=== PATIENT | female | born 1960 | race Caucasian/White ===

== ENCOUNTER → 2016-12-28 | Outpatient (CLI) | payer BC ==
[2013-12-24 15:07] VITALS: BP 116/69
[~2016-12-28] MED LIST: ARIP5TAB13 PO; LEVO100T PO; TRAZ50TA15 PO; VENL75CA PO
--- NOTE | 2016-12-28 15:13 | KCIC ---
EXAM: Dual energy x-ray absorptiometry (DEXA). HISTORY: Postmenopausal female presents for osteoporosis screening. COMPARISON: None. TECHNIQUE: Dual energy x-ray absorptiometry of the lumbar spine and left hip was performed. Calculation of bone mineral density based on standard deviations above or below the expected young adult normal value (T-score) was completed. FINDINGS: The average bone mineral density in the 1st through 4th lumbar vertebrae is 1.006 g/cmxcm, corresponding with a T-score of -0.4. The average total bone mineral density in the left hip is 0.937 g/cmxcm, corresponding with a T-score of -0.0. IMPRESSION: Normal bone mineral density. Note: Definitions established by the World Health Organization: 1. Normal: T-score is -1.0 or above. 2. Osteopenia: T-score is between -1.0 and -2.5 . 3. Osteoporosis: T-score is -2.5 or below. Electronically signed by: Agnieszka Mcdaniels MD (12/28/2016 3:09 PM) [id number]
--- NOTE | 2016-12-28 15:55 | KCIC ---
EXAM: CT CORONARY CALCIUM SCORING. HISTORY: Coronary risk factors. Calcium scoring is requested. Family history of coronary disease. COMPARISON: None. FINDINGS: Limited noncontrast CT of the chest was performed for coronary calcium scoring. Refer to the worksheets for full detail. Agatston calcium coronary scoring is as follows: LMA: 0. LAD: 0. LCX: 0. RCA: 0. PDA: 0. Total: 0. This places the patient at the 0th percentile in age- and sex-matched subjects. The included portions of the chest reveal the following. Bone windows reveal no suspicious lesions. Images of the upper abdomen reveal mild splenomegaly at 14.5 cm. It retains its normal concave morphology. There are no pathologically enlarged mediastinal lymph nodes. There is no pleural or pericardial effusion. The heart is not enlarged. There is mild atelectasis or scarring in the lingula and right middle lobe. IMPRESSION: 1. Agatston calcium score 0. 2. Mild splenomegaly. *One or more of the following individualized dose reduction techniques were utilized for this examination: 1. Automated exposure control. 2. Adjustment of the mA and/or kV according to patient size. 3. Use of iterative reconstruction technique. Electronically signed by: Sam Dennis MD (12/28/2016 3:51 PM) [facility]
== END | disposition home or self-care (01) ==
LOC: KCIC DEXA 09:29
PROVIDERS: ATTEND Family Medicine
DX: Z78.0 Asymptomatic menopausal state (principal); M85.88 Other specified disorders of bone density and structure, other site; Z82.49 Family history of ischemic heart disease and other diseases of the circulatory system; R16.1 Splenomegaly, not elsewhere classified
CPT/HCPCS: 75571; 77080

== ENCOUNTER → 2017-02-14 | Outpatient (CLI) | payer BC ==
[2013-12-24 15:07] VITALS: BP 116/69
[~2017-02-14] MED LIST changes: +DARI7.5T3 PO; +DEXT15CA18 PO; +IOHEXOL 240 MG/ML 50ML VIAL. PO ONE; +IOHEXOL 300 MG/ML 100ML VIAL. IV ONE; +SERT50TA PO
--- NOTE | 2017-02-14 14:00 | KCIC ---
PQRS Compliance Statement: One or more of the following individualized dose reduction techniques were utilized for this examination: 1. Automated exposure control 2. Adjustment of the mA and/or kV according to patient size 3. Use of iterative reconstruction technique CT ABD PELV W/ORAL IV CONTRAST Clinical Indication: Epigastric pain, vomiting x1 day. Comparison: None. Technique: Helical CT imaging of the abdomen and pelvis is performed after 100 cc Omnipaque 300 IV contrast. Oral contrast also given. Findings: Minimal atelectasis or scarring in the posterior left lower lobe, inferior lingula, and right middle lobe. Cardiac size normal. 9 mm hypodensity anterior dome of the liver, incompletely characterized. Liver otherwise homogeneous. Gallbladder is distended, otherwise normal. Spleen, pancreas, adrenal glands, abdominal aorta, and kidneys are normal. Stomach unremarkable. Small fat-containing umbilical hernia. No dilated small bowel. No secondary signs of appendicitis. No colon wall thickening. No abdominal adenopathy or free fluid. Uterus unremarkable. Urinary bladder normal. No pelvic free fluid. No acute bone abnormality. Sacralized left L5 vertebral body. IMPRESSION: No acute abdominal or pelvic abnormality. Electronically signed by: [place] MD (02/14/2017 1:57 PM) [id number]
== END | disposition home or self-care (01) ==
LOC: KCIC CT 12:44
PROVIDERS: ATTEND Nurse Practitioner Family
DX: R10.13 Epigastric pain (principal); R11.10 Vomiting, unspecified
CPT/HCPCS: 74177; Q9966; Q9967

== ENCOUNTER 2017-02-16 23:51 | Inpatient (IN) | payer BC ==
[~2017-02-16] VITALS: Ht 162.6 cm; Wt 96.2 kg
[~2017-02-16 23:51] MED LIST changes: -IOHEXOL 240 MG/ML 50ML VIAL. PO ONE; -IOHEXOL 300 MG/ML 100ML VIAL. IV ONE
[2017-02-17] VITALS (11 sets, daily range): BP systolic 108–168; BP diastolic 59–92
--- NOTE | 2017-02-17 00:08 | PHYS DOC ---
Past Medical History Past Medical History: Depression, Hypertension, Hypothyroid Additional Past Medical Histor: Breast CA- treated Past Medical History Thyroid disease Additional Past Surgical Histo: Right breast lumpectomy Additional Information: Non smoker Alcohol Use: None Drug Use: None Adult General Chief Complaint Chief Complaint: ABDOMINAL PAIN HPI HPI Patient is a 56 year old female who presents with abdominal pain. Started on Monday; epigastric and then radiates down into her entire abdomen stopping at her umbilicus. More pronounced epigastric and RUQ area. The patient is been constant, she's had vomiting. No diarrhea actually no stool at all. Some chills no documented fever. No recent travel. No urinary complaints. She was seen by her physician on Monday and had a CAT scan. CT report from February 14 was unremarkable except for small fat-containing umbilical hernia. Review of Systems Review of Systems Constitutional: no known fever; reports chills Eyes: Denies change in visual acuity, redness, or eye pain HENT: Denies nasal congestion or sore throat Respiratory: Denies cough or shortness of breath Cardiovascular: No chest pain GI: Reports abdominal pain, nausea, vomiting, No bloody stools or diarrhea : Denies dysuria or hematuria Musculoskeletal: Denies back pain or joint pain Integument: Denies rash or skin lesions Neurologic: Denies headache, focal weakness or sensory changes Endocrine: Denies polyuria or polydipsia Current Medications Current Medications Current Medications Medications (Trade) Dose Ordered Sig/Jaclyn Start Time Stop Time Status Last Admin Dose Admin Morphine Sulfate 2 mg PRN Q15MIN PRN 02/17/17 00:22 02/18/17 00:14 02/17/17 00:26 2 MG Ondansetron HCl (Zofran) 4 mg 1X ONCE 02/17/17 00:15 02/17/17 00:16 DC 02/17/17 00:26 4 MG Sodium Chloride 1,000 ml @ 1,000 mls/hr Q1H 02/17/17 00:15 02/17/17 01:14 02/17/17 00:27 1,000 MLS/HR Allergies Allergies Allergies Coded Allergies Type Severity Reaction Last Updated Verified No Known Drug Allergies 12/16/13 No Physical Exam Physical Exam Constitutional: Well developed, well nourished, no acute distress, non-toxic appearance. HENT: Normocephalic, atraumatic, bilateral external ears normal, oropharynx moist, no oral exudates, nose normal. Eyes: PERRLA, EOMI, conjunctiva normal, no discharge. Neck: Normal range of motion, no tenderness, supple, no stridor. Cardiovascular:Heart rate regular rhythm, no murmur Lungs & Thorax: Bilateral breath sounds clear to auscultation Abdomen: Bowel sounds normal, soft, tenderness diffusely but increased in epigastric and RUQ, no masses, no pulsatile masses. Skin: Warm, dry, no erythema, no rash. Back: No tenderness, no CVA tenderness. Extremities: No tenderness, no cyanosis, no clubbing, ROM intact, no edema. Neurologic: Alert and oriented X 3, normal motor function, normal sensory function, no focal deficits noted. Psychologic: Affect normal, judgement normal, mood normal. Current Patient Data Vital Signs Vital Signs Date Time Temp Pulse Resp B/P (MAP) Pulse Ox O2 Delivery O2 Flow Rate FiO2 02/17/17 00:30 89 16 168/85 (112) 99 02/17/17 00:14 99.0 Room Air 99.0 Lab Values Laboratory Tests Test 02/17/17 00:19 White Blood Count 14.5 x10^3/uL (4.0-11.0) H Red Blood Count 4.97 x10^6/uL (3.50-5.40) Hemoglobin 14.1 g/dL (12.0-15.5) Hematocrit 41.9 % (36.0-47.0) Mean Corpuscular Volume 84 fL (79-100) Mean Corpuscular Hemoglobin 28 pg (25-35) Mean Corpuscular Hemoglobin Concent 34 g/dL (31-37) Red Cell Distribution Width 14.5 % (11.5-14.5) Platelet Count 221 x10^3/uL (140-400) Neutrophils (%) (Auto) 85 % (31-73) H Lymphocytes (%) (Auto) 5 % (24-48) L Monocytes (%) (Auto) 9 % (0-9) Eosinophils (%) (Auto) 1 % (0-3) Basophils (%) (Auto) 1 % (0-3) Neutrophils # (Auto) 12.3 x10^3uL (1.8-7.7) H Lymphocytes # (Auto) 0.8 x10^3/uL (1.0-4.8) L Monocytes # (Auto) 1.2 x10^3/uL (0.0-1.1) H Eosinophils # (Auto) 0.1 x10^3/uL (0.0-0.7) Basophils # (Auto) 0.1 x10^3/uL (0.0-0.2) Platelet Estimate Pending Sodium Level 134 mmol/L (136-145) L Potassium Level 3.5 mmol/L (3.5-5.1) Chloride Level 98 mmol/L (98-107) Carbon Dioxide Level 28 mmol/L (21-32) Anion Gap 8 (6-14) Blood Urea Nitrogen 13 mg/dL (7-20) Creatinine 1.0 mg/dL (0.6-1.0) Estimated GFR (Cockcroft-Gault) 56.9 BUN/Creatinine Ratio 13 (6-20) Glucose Level 150 mg/dL (70-99) H Calcium Level 8.8 mg/dL (8.5-10.1) Total Bilirubin 0.8 mg/dL (0.2-1.0) Aspartate Amino Transferase (AST) 18 U/L (15-37) Alanine Aminotransferase (ALT) 37 U/L (14-59) Alkaline Phosphatase 121 U/L (46-116) H Creatine Kinase 52 U/L (26-192) Troponin I Quantitative < 0.017 ng/mL (0.000-0.055) Total Protein 6.7 g/dL (6.4-8.2) Albumin 3.6 g/dL (3.4-5.0) Albumin/Globulin Ratio 1.2 (1.0-1.7) Lipase 86 U/L (73-393) Laboratory Tests 02/17/17 00:19 Laboratory Tests 02/17/17 00:19 EKG EKG EKG interpreted by myself at 0010 a.m. Normal sinus rhythm, rate of 90, leftward axis, nonspecific ST changes, no ST elevation Course & Med Decision Making Course & Med Decision Making Evaluated patient upon arrival. IV NS, IV morphine and IV Zofran. My differential for abdominal pain includes but is not limited to appendicitis; cholelithiasis or cholecystitis; renal stones; ureterolithiasis; pancreatitis; urinary tract infection; bowel obstruction; irritable bowel. She has had a recent normal CT scan. Checking lab. May still be biliary colic. 0055 am: Reviewed lap. She does have a leukocytosis which I presume is new since her laboratory data she had an outpatient on Monday was "normal". Repeat exam shows persistent pain in the right upper quadrant. She does not have however an acute surgical abdomen at this time. My presumptive diagnosis is acute cholecystitis. I did not feel that a repeat CAT scan was warranted so soon one just performed. Gallbladder ultrasound was ordered for the morning since now she'll be nothing by mouth all night. Dr Balderas accepted patient. Consult for general surgery, Dr Sanchez placed for the am. I have spoken with the patient and/or caregivers. I have explained the patient' s condition, diagnosis and treatment plan based on the information available to me at this time. I have answered the patient's and/or caregiver's questions and addressed any concerns. The patient and/or caregivers have as good an understanding of the patient's diagnosis, condition and treatment plan as can be expected at this point. The patient has been stabilized within the capability of the emergency department. The patient will be transported for further care and management or will be moved to an observation or inpatient service. I have communicated with the staff or medical practitioner taking over this patient's care. Dragon Disclaimer Dragon Disclaimer This electronic medical record was generated, in whole or in part, using a voice recognition dictation system. Departure Departure Impression: Primary Impression: Abdominal pain Additional Impressions: Nausea & vomiting Leukocytosis Disposition: ADMITTED INPATIENT Admitting Physician: Celeste Balderas Condition: STABLE Referrals: RONA REID MD (PCP) Problem Qualifiers Primary Impression: Abdominal pain Abdominal location: right upper quadrant Qualified Codes: R10.11 - Right upper quadrant pain ROSA BRITT MD Feb 17, 2017 00:08
[2017-02-17] MEDS ORDERED: ONDANSETRON PF 4 MG/2 ML VIAL. IV ONE (00:15)
[2017-02-17] MEDS ORDERED: MORPHINE SULFATE 2 MG/ML DISP.SYRIN. IV/SQ PRN (00:15)
[2017-02-17] MEDS ORDERED: IV NORMAL SALINE 1000ML BAG 1,000 ML IV SCH (00:15)
[2017-02-17 00:23] LABS: BASO # 0.1 x10^3/uL (0.0-0.2); BASO % 1 % (0-3); EOS % 1 % (0-3); HEMATOCRIT 41.9 % (36.0-47.0); HEMOGLOBIN 14.1 g/dL (12.0-15.5); LYMPH # 0.8 x10^3/uL (1.0-4.8); LYMPH % 5 % (24-48); MEAN CORPUSCULAR HEMOGLOBIN 28 pg (25-35); MEAN CORPUSCULAR HGB CONC 34 g/dL (31-37); MEAN CORPUSCULAR VOLUME 84 fL (79-100); MONO % 9 % (0-9); NEUT % 85 % (31-73); PLATELET COUNT 221 x10^3/uL (140-400); RED BLOOD COUNT 4.97 x10^6/uL (3.50-5.40); RED CELL DISTRIBUTION WIDTH 14.5 % (11.5-14.5); WHITE BLOOD COUNT 14.5 x10^3/uL (4.0-11.0)
[2017-02-17] MEDS: MORPHINE SULFATE 4 MG/ML DISP.SYRIN. IV/SQ PRN ×4 (00:26→14:21)
[2017-02-17 00:35] LABS: CALCIUM 8.8 mg/dL (8.5-10.1); GFR 56.9; POTASSIUM 3.5 mmol/L (3.5-5.1)
[2017-02-17 00:41] LABS: ALBUMIN 3.6 g/dL (3.4-5.0); ALBUMIN/GLOBULIN RATIO 1.2 (1.0-1.7); TOTAL BILIRUBIN 0.8 mg/dL (0.2-1.0); TOTAL PROTEIN 6.7 g/dL (6.4-8.2)
[2017-02-17] MEDS ORDERED: ONDANSETRON PF 4 MG/2 ML VIAL. IV PRN ×2 (01:00→12:15)
[2017-02-17 01:15] LABS: PLT ESTIMATE ADEQUATE (ADEQUATE)
[2017-02-17] MEDS ORDERED: CEFEPIME HCL 1 GM in IV NORMAL SALINE 50ML 50 ML IV ONE (01:30)
[2017-02-17] MEDS ORDERED: POTASSIUM CL 20MEQ D5-0.45NACL 1,000 ML IV ONE (02:15)
[2017-02-17] MEDS ORDERED: DEXT15CA18 PO (03:04)
[2017-02-17] MEDS: fentaNYL PF VIAL 100 MCG/2 ML VIAL IV PRN ×4 (03:14→13:44)
[2017-02-17] MEDS ORDERED: PROM25TA10 PO (03:52)
[2017-02-17] MEDS: CEFEPIME HCL 1 GM in IV NORMAL SALINE 50ML 50 ML IV SCH ×3 (05:34→21:05)
[2017-02-17] MEDS: MORPHINE SULFATE 4 MG/ML DISP.SYRIN. IV PRN ×3 (06:00→10:52)
--- NOTE | 2017-02-17 06:07 | EKG ---
[facility] [address] [place] [address] Test Date: 2017-02-17 Test Time: 00:10:55 Pat Name: GERI VIZCARRA Department: Room: [facility] Gender: F Development Technologist: : 1960 Requested By: ROSA BRITT Order Number: [id number] Reading MD: Sukumar Perez Measurements Intervals [place] Rate: 90 P: 42 SD: 128 QRS: -15 QRSD: 88 T: 26 QT: 350 QTc: 432 Interpretive Statements SINUS RHYTHM Electronically Signed On 02-21-2017 7:17:02 CDT by Sukumar Perez
--- NOTE | 2017-02-17 09:12 | RAD ---
Abdominal ultrasound, 02/17/2017: History: Abdominal pain and chills The gallbladder is at the upper limits of normal in size. There is an echogenic structure in the gallbladder neck with posterior acoustic shadowing compatible with a gallstone. The gallbladder wall is mildly thickened. The patient was reportedly tender to transducer pressure over the gallbladder. The common hepatic duct is of normal caliber. There is no evidence of a hepatic mass. The pancreas was obscured by overlying bowel. The spleen is at the upper limits of normal in size measuring 14 cm in length. Much of the abdominal aorta and inferior vena cava were obscured by overlying bowel. No free fluid is evident in the abdomen. IMPRESSION: 1. Cholelithiasis with mild gallbladder wall thickening and a positive sonographic Camara's sign. The wall thickening raises the possibility of acute cholecystitis, although gallbladder wall thickening can be due to a variety of other causes including include liver disease, renal disease or hypoproteinemia. 2. Borderline splenomegaly.
[2017-02-17] MEDS ORDERED: SURGICEL HEMOSTAT 4X8 EACH. ONE (10:31)
[2017-02-17] MEDS ORDERED: BUPIVAC MPF-EPI 0.5%-1:200000 30 ML VIAL. ONE (10:32)
[2017-02-17] MEDS ORDERED: IOHEXOL 300 MG/ML 50 ML VIAL. ONE (10:32)
[2017-02-17] MEDS ORDERED: fentaNYL PF VIAL 100 MCG/2 ML VIAL ONE ×2 (10:49→13:28)
[2017-02-17] MEDS ORDERED: LIDOCAINE 2% PF Vial for OR 5 ML VIAL. ONE (10:49)
[2017-02-17] MEDS ORDERED: PROPOFOL 20 ML IV ONE (10:49)
[2017-02-17] MEDS ORDERED: ROCURONIUM 100 MG/10 ML VIAL. ONE (10:49)
[2017-02-17] MEDS ORDERED: SUCCINYLCHOLINE 200 MG/10 ML VIAL. ONE (10:50)
[2017-02-17] MEDS ORDERED: BUPIVACAINE-EPI 0.25%-1:200000 MPF 30 ML VIAL. ONE (10:55)
--- NOTE | 2017-02-17 11:08 | ACF ---
Admit Criteria Forms Admit Criteria Forms Admit Criteria Forms ABDOMINAL PAIN Clinical Indications for Admission to Inpatient Care ( [place]/check or initial the applicable condition/criteria): Admission is indicated for ANY ONE of the following (1)(2)(3)(4)(5)(6): [X]I. Surgery needed that cannot be performed on ambulatory basis [ ]II. Peritoneal signs present (eg, rebound tenderness, rigidity) [ ]III. Evaluation requires patient to not eat or drink for extended period ( eg, more than 24 hours). [ ]IV. Inpatient admission required[B] rather than observation care (see Abdominal Pain: Observation Care guideline as appropriate) because of ANY ONE of the following(7)(8)(9): [ ] a) Hemodynamic instability [ ]b) Severe pain requiring acute inpatient management [ ]c) Identification of etiology or finding that requires inpatient care (eg, aortic dissection, free air,bowel ischemia)(10) [ ]d) Absent bowel sounds with complete ileus (11) [ ]e) Signs of intestinal obstruction[C] [ ]f) Suspected toxic megacolon [ ]g) Severe electrolyte abnormalities requiring inpatient care [ ]h) High fever or infection requiring inpatient admission as indicated by ANY ONE of the following (12)(13): [ ]i) Appropriate outpatient or observation care antimicrobial treatment unavailable, not effective, or not feasible [ ]ii) Documented bacteremia [ ]iii) Temperature greater than 104.9 degrees F (40.5 degrees C) (oral) [ ]iv) Temperature greater than 103.1 degrees F (39.5 degrees C) ( oral) or less than 96.8 degrees F (36 degrees C) (rectal) that does not respond to all emergency treatment measures [ ]i) IV fluid required rather than oral rehydration to replace significant ongoing (eg, for greater than 24 hours) losses (greater than 3 L/m2 per day)(14)(15) [ ]j) Percutaneous or open drainage (eg, abscess, biliary tract) procedures [ ]k) Parenteral nutrition regimen that must be implemented on inpatient basis [ ]l) Other condition, treatment, or monitoring requiring inpatient admission Extended stay beyond goal length of stay may be needed for (1)(3)(4)(10)(16): [ ]a) Surgery (e.g., colectomy, revascularization procedure) [ ]b) Persistent abdominal pain with suspected intra-abdominal process [ ]c) Diagnosed condition requiring continued stay (e.g., pancreatitis, complicated diverticulitis) The original [facility] content created by [facility] has been revised. The portions of the content which have been revised are identified through the use of italic text, and [facility] has neither reviewed nor approved the modified material.All other unmodified content is copyright [facility]. Please see references footnoted in the original [facility] edition 2014 ELMER HER Feb 17, 2017 11:08
--- NOTE | 2017-02-17 11:31 | PDOC2 ---
CONSULT Date of Consult Date of Consult DATE: 02/17/17 TIME: 11:28 Reason for Consult Reason for Consult: RUQ abominal pain Referring Physician Referring Physician: Andrey Identification/Chief Complaint Chief Complaint Abdominal pain Problems: Source Source: Patient History of Present Illness Reason for Visit: 56 yo female with 4 day history of upper abdominal pain with nausea, worse after eating. U/S shows mildly thickened GB with stones and a positive Camara's sign. Past Medical History Cardiovascular: No pertinent hx Pulmonary: No pertinent hx GI: No pertinent hx Heme/Onc: No pertinent hx Hepatobiliary: No pertinent hx Psych: No pertinent hx Infectious disease: No pertinent hx Renal/: No pertinent hx Endocrine: No pertinent hx Dermatology: No pertinent hx Past Surgical History Past Surgical History: No pertinent history Family History Family History: No Significant Social History No ALCOHOL: none Drugs: None Lives: with Family Current Problem List Problem List Problems Medical Problems: (1) Abdominal pain Status: Acute (2) Leukocytosis Status: Acute (3) Nausea & vomiting Status: Acute Current Medications Current Medications Current Medications Morphine Sulfate 2 mg PRN Q15MIN PRN IV/SQ PAIN GREATER THAN 3/10; Start at 00:15; Stop 02/17/17 at 00:22; Status DC Sodium Chloride 1,000 ml @ 1,000 mls/hr Q1H IV Last administered on 02/17/17 00:27; Start 02/17/17 at 00:15; Stop 02/17/17 at 01:14; Status DC Ondansetron HCl (Zofran) 4 mg 1X ONCE IV Last administered on 02/17/17 00:26 ; Start 02/17/17 at 00:15; Stop 02/17/17 at 00:16; Status DC Morphine Sulfate 2 mg PRN Q15MIN PRN IV/SQ PAIN GREATER THAN 3/10 Last administered on 02/17/17 01:44; Start 02/17/17 at 00:22; Stop 02/18/17 at 00:14 Ondansetron HCl (Zofran) 4 mg PRN Q8HRS PRN IV NAUSEA/VOMITING; Start 02/17/17 at 01:00; Stop 02/18/17 at 00:59 Morphine Sulfate 2 mg PRN Q2HR PRN IV PAIN Last administered on 02/17/17 10:52 ; Start 02/17/17 at 01:00; Stop 02/18/17 at 00:59 Fentanyl Citrate (Fentanyl 2ml Vial) 50 mcg PRN Q2HR PRN IV PAIN Last administered on 02/17/17 03:14; Start 02/17/17 at 01:00; Stop 02/18/17 at 00:59 Cefepime HCl 1 gm/ Sodium Chloride 50 ml @ 100 mls/hr Q8HRS IV Last administered on 02/17/17 05:34; Start 02/17/17 at 06:00 Cefepime HCl 1 gm/ Sodium Chloride 50 ml @ 100 mls/hr ONCE ONCE IV Last administered on 02/17/17 01:44; Start 02/17/17 at 01:30; Stop 02/17/17 at 02:00 ; Status DC Potassium Chloride/Dextrose/ Sod Cl 1,000 ml @ 125 mls/hr 1X ONCE IV Last administered on 02/17/17 03:25; Start 02/17/17 at 02:15; Stop 02/17/17 at 10:14 ; Status DC Cellulose 1 each STK-MED ONCE .ROUTE ; Start 02/17/17 at 10:31; Stop 02/17/17 at 10:32; Status DC Bupivacaine HCl/ Epinephrine Bitart (Sensorcain-Mpf Epi 0.5%-1:[id number]) 30 ml STK -MED ONCE .ROUTE ; Start 02/17/17 at 10:32; Stop 02/17/17 at 10:33; Status DC Iohexol (Omnipaque 300 Mg/ml) 50 ml STK-MED ONCE .ROUTE ; Start 02/17/17 at 10: 32; Stop 02/17/17 at 10:33; Status DC Propofol 20 ml @ As Directed STK-MED ONCE IV ; Start 02/17/17 at 10:49; Stop at 10:50; Status DC Lidocaine HCl (Lidocaine Pf 2% Vial) 5 ml STK-MED ONCE .ROUTE ; Start 02/17/17 at 10:49; Stop 02/17/17 at 10:50; Status DC Fentanyl Citrate (Fentanyl 2ml Vial) 100 mcg STK-MED ONCE .ROUTE ; Start at 10:49; Stop 02/17/17 at 10:50; Status DC Rocuronium [place] (Zemuron) 100 mg STK-MED ONCE .ROUTE ; Start 02/17/17 at 10: 49; Stop 02/17/17 at 10:50; Status DC Succinylcholine Chloride (Anectine) 200 mg STK-MED ONCE .ROUTE ; Start 02/17/17 at 10:50; Stop 02/17/17 at 10:51; Status DC Bupivacaine HCl/ Epinephrine Bitart (Sensorcaine-Epi 0.25%-1:953949 Mpf) 30 ml STK-MED ONCE .ROUTE ; Start 02/17/17 at 10:55; Stop 02/17/17 at 10:56; Status DC Active Scripts Active Reported Promethazine Hcl 25 Mg Tablet 25 Mg PO Q6H Adderall Xr 15 Mg Capsule (Dextroamphetamine/Amphetamine) 15 Mg Cap.er.24h 15 Mg PO BID Zoloft (Sertraline Hcl) 50 Mg Tablet 1 Tab PO DAILY Effexor Xr (Venlafaxine Hcl) 75 Mg Cap.er.24h 150 Mg PO DAILY Synthroid (Levothyroxine Sodium) 100 Mcg Tablet 0 PO DAILYAC Trazodone Hcl 50 Mg Tablet 200 Mg PO HS Allergies Allergies: Coded Allergies: No Known Drug Allergies (Unverified , 12/16/13) ROS Gastrointestinal: Yes Nausea, Yes Vomiting, Yes Abdominal Pain Physical Exam General: Alert, Oriented X3, Cooperative, mild distress HEENT: Atraumatic, PERRLA, EOMI Lungs: Clear to auscultation, Normal air movement Heart: Regular rate, No murmurs Abdomen: Normal bowel sounds, Soft, Other (TTP RUQ) Extremities: No edema Skin: No significant lesion Neuro: Normal speech Psych/Mental Status: Mental status NL Vitals VITALS Vital Signs Date Time Temp Pulse Resp B/P (MAP) Pulse Ox O2 Delivery O2 Flow Rate FiO2 02/17/17 10:52 20 94 Room Air 02/17/17 07:00 99.4 91 168/92 (117) 99.4 Labs Labs Laboratory Tests Test 02/17/17 00:19 White Blood Count 14.5 x10^3/uL (4.0-11.0) Red Blood Count 4.97 x10^6/uL (3.50-5.40) Hemoglobin 14.1 g/dL (12.0-15.5) Hematocrit 41.9 % (36.0-47.0) Mean Corpuscular Volume 84 fL (79-100) Mean Corpuscular Hemoglobin 28 pg (25-35) Mean Corpuscular Hemoglobin Concent 34 g/dL (31-37) Red Cell Distribution Width 14.5 % (11.5-14.5) Platelet Count 221 x10^3/uL (140-400) Neutrophils (%) (Auto) 85 % (31-73) Lymphocytes (%) (Auto) 5 % (24-48) Monocytes (%) (Auto) 9 % (0-9) Eosinophils (%) (Auto) 1 % (0-3) Basophils (%) (Auto) 1 % (0-3) Neutrophils # (Auto) 12.3 x10^3uL (1.8-7.7) Lymphocytes # (Auto) 0.8 x10^3/uL (1.0-4.8) Monocytes # (Auto) 1.2 x10^3/uL (0.0-1.1) Eosinophils # (Auto) 0.1 x10^3/uL (0.0-0.7) Basophils # (Auto) 0.1 x10^3/uL (0.0-0.2) Segmented Neutrophils % 84 % (35-66) Band Neutrophils % 1 % (0-9) Lymphocytes % 6 % (24-48) Monocytes % 9 % (0-10) Platelet Estimate Adequate (ADEQUATE) Sodium Level 134 mmol/L (136-145) Potassium Level 3.5 mmol/L (3.5-5.1) Chloride Level 98 mmol/L (98-107) Carbon Dioxide Level 28 mmol/L (21-32) Anion Gap 8 (6-14) Blood Urea Nitrogen 13 mg/dL (7-20) Creatinine 1.0 mg/dL (0.6-1.0) Estimated GFR (Cockcroft-Gault) 56.9 BUN/Creatinine Ratio 13 (6-20) Glucose Level 150 mg/dL (70-99) Calcium Level 8.8 mg/dL (8.5-10.1) Total Bilirubin 0.8 mg/dL (0.2-1.0) Aspartate Amino Transf (AST/SGOT) 18 U/L (15-37) Alanine Aminotransferase (ALT/SGPT) 37 U/L (14-59) Alkaline Phosphatase 121 U/L (46-116) Creatine Kinase 52 U/L (26-192) Troponin I Quantitative < 0.017 ng/mL (0.000-0.055) Total Protein 6.7 g/dL (6.4-8.2) Albumin 3.6 g/dL (3.4-5.0) Albumin/Globulin Ratio 1.2 (1.0-1.7) Lipase 86 U/L (73-393) Laboratory Tests Test 02/17/17 00:19 White Blood Count 14.5 x10^3/uL (4.0-11.0) Red Blood Count 4.97 x10^6/uL (3.50-5.40) Hemoglobin 14.1 g/dL (12.0-15.5) Hematocrit 41.9 % (36.0-47.0) Mean Corpuscular Volume 84 fL (79-100) Mean Corpuscular Hemoglobin 28 pg (25-35) Mean Corpuscular Hemoglobin Concent 34 g/dL (31-37) Red Cell Distribution Width 14.5 % (11.5-14.5) Platelet Count 221 x10^3/uL (140-400) Neutrophils (%) (Auto) 85 % (31-73) Lymphocytes (%) (Auto) 5 % (24-48) Monocytes (%) (Auto) 9 % (0-9) Eosinophils (%) (Auto) 1 % (0-3) Basophils (%) (Auto) 1 % (0-3) Neutrophils # (Auto) 12.3 x10^3uL (1.8-7.7) Lymphocytes # (Auto) 0.8 x10^3/uL (1.0-4.8) Monocytes # (Auto) 1.2 x10^3/uL (0.0-1.1) Eosinophils # (Auto) 0.1 x10^3/uL (0.0-0.7) Basophils # (Auto) 0.1 x10^3/uL (0.0-0.2) Segmented Neutrophils % 84 % (35-66) Band Neutrophils % 1 % (0-9) Lymphocytes % 6 % (24-48) Monocytes % 9 % (0-10) Platelet Estimate Adequate (ADEQUATE) Sodium Level 134 mmol/L (136-145) Potassium Level 3.5 mmol/L (3.5-5.1) Chloride Level 98 mmol/L (98-107) Carbon Dioxide Level 28 mmol/L (21-32) Anion Gap 8 (6-14) Blood Urea Nitrogen 13 mg/dL (7-20) Creatinine 1.0 mg/dL (0.6-1.0) Estimated GFR (Cockcroft-Gault) 56.9 BUN/Creatinine Ratio 13 (6-20) Glucose Level 150 mg/dL (70-99) Calcium Level 8.8 mg/dL (8.5-10.1) Total Bilirubin 0.8 mg/dL (0.2-1.0) Aspartate Amino Transf (AST/SGOT) 18 U/L (15-37) Alanine Aminotransferase (ALT/SGPT) 37 U/L (14-59) Alkaline Phosphatase 121 U/L (46-116) Creatine Kinase 52 U/L (26-192) Troponin I Quantitative < 0.017 ng/mL (0.000-0.055) Total Protein 6.7 g/dL (6.4-8.2) Albumin 3.6 g/dL (3.4-5.0) Albumin/Globulin Ratio 1.2 (1.0-1.7) Lipase 86 U/L (73-393) Images Images in HPI Assessment/Plan Assessment/Plan Cholecystitis with cholelithiasis Plan L/S Cholecystectomy JOY WHARTON MD Feb 17, 2017 11:31
[2017-02-17] MEDS ORDERED: ONDANSETRON PF 4 MG/2 ML VIAL. ONE (11:55)
[2017-02-17] MEDS ORDERED: DEXAMETHASONE SOD PHOS 20 MG/5 ML VIAL. ONE (11:55)
[2017-02-17] MEDS ORDERED: DESFLURANE 31 TO 60 MINUTES IH ONE (11:55)
[2017-02-17] MEDS ORDERED: NEOSTIGMINE 10 MG/10 ML VIAL. ONE (12:01)
[2017-02-17] MEDS ORDERED: GLYCOPYRROLATE 1 MG/5 ML VIAL. ONE (12:04)
[2017-02-17] MEDS ORDERED: IV RINGERS,LACTATED 1000ML 1,000 ML IV SCH (12:08)
[2017-02-17] MEDS ORDERED: MORPHINE SULFATE 2 MG/ML DISP.SYRIN. IV PRN (12:15)
[2017-02-17] MEDS ORDERED: fentaNYL PF VIAL 100 MCG/2 ML VIAL IV PRN (12:15)
[2017-02-17] MEDS ORDERED: HYDROmorphone 2 MG/ML VIAL IV PRN (12:15)
[2017-02-17] MEDS ORDERED: PROCHLORPERAZINE 10 MG/2 ML VIAL. IV PRN (12:15)
[2017-02-17] MEDS ORDERED: LIDOCAINE 1% 1 ML SYRINGE. ID PRN (12:15)
[2017-02-17] MEDS ORDERED: LABETALOL 20 MG/4 ML DISP.SYRIN. ONE (12:51)
--- NOTE | 2017-02-17 13:13 | PDOC ---
BRIEF OPERATIVE NOTE Date: Feb 17, 2017 Pre-Op Diagnosis Cholecystitis Post-Op Diagnosis Same Procedure Performed L/S Cholecystectomy Surgeon Daniel Anesthesia Type: General Blood Loss 50ml Specimens Obtained Gallbladder Findings As above Complications NOne JOY WHARTON MD Feb 17, 2017 13:13
[2017-02-17] MEDS ORDERED: oxyCODONE/APAP 5/325 1 TAB TABLET PO PRN ×2 (13:15)
[2017-02-17] MEDS ORDERED: KETOROLAC 15 MG/ML VIAL. ONE (13:43)
--- NOTE | 2017-02-17 14:08 | OP ---
DATE OF SURGERY: 02/17/2017 PREOPERATIVE DIAGNOSIS: Acute cholecystitis. POSTOPERATIVE DIAGNOSIS: Acute cholecystitis. PROCEDURE: Laparoscopic cholecystectomy. SURGEON: Baljeet Sanchez M.D. INDICATIONS: The patient is a 56-year-old female who was admitted to the hospital with right upper quadrant abdominal pain, ultrasound showing thickened gallbladder wall and a positive Camara sign. Procedure of laparoscopic cholecystectomy was explained to the patient in detail. Risks, benefits were also discussed including bleeding, infection. Alternatives of this procedure were also discussed with the patient who seemed to understand and gave verbal and written consent to have the procedure performed. DESCRIPTION OF PROCEDURE: The patient was taken to the operating room and placed in the supine position, general anesthesia was initiated. Once the patient was asleep and intubated, her abdomen was prepped and draped in usual sterile fashion using ChloraPrep. An area just below the umbilicus injected with 0.25% Marcaine with epinephrine. Incision was made with an 11 blade scalpel and a Veress needle was placed within the abdomen and pneumoperitoneum was achieved. Once this was complete, a 5 mm camera was placed within the abdomen. Abdomen was inspected. It was noted there was quite a bit of inflammation in the right upper quadrant. At this point, three 5 mm ports were placed under direct visualization, one in the epigastrium, 2 in the right upper quadrant. The dome of the gallbladder was grasped and retracted cephalad. The infundibulum of the gallbladder was grasped and retracted laterally. The gallbladder was quite tense, so was aspirated of 60 mL of dark purulent bile material. At this point, dissection in the triangle of Calot was down with blunt dissection. There was quite a bit of inflammation and the adherent tissues were quite thickened, eventually the cystic artery was visualized and this was clipped, the cystic duct was then visualized, it was quite large, it was quite dilated, so the 5 mm port in the epigastric area was changed up for 12 mm port allowing for a 10 mm Hem-o-arlin clip to be used to clip in the cystic duct. Two clips were used and cystic duct was transected. The gallbladder was taken off the liver with hook electrocautery, placed in EndoCatch bag and removed from the umbilicus. Right upper quadrant was irrigated and suctioned dry. Hemostasis seemed to be appropriate. A 15-[place] JUJU drain was placed through the lateral 5 mm port. This was placed in the right gutter and the gallbladder fossa. This was sewn into place with a 2-0 silk stitch. The pneumoperitoneum was reduced. All ports were removed. Fascial defect at the umbilicus closed with [id number] 0 Vicryl suture and the skin was reapproximated at all port sites with 4-0 subcuticular Monocryl. Mastisol, Steri-Strips were applied. The patient was awakened, extubated in the operating room, taken to recovery in stable condition. All sponge and instrument counts were listed as correct. Estimated blood loss 50 mL. BALJEET SANCHEZ MD DR: TAN/epifanio JOB#: [id number] / [id number] BRIAN Bowling MD
[2017-02-17] MEDS: KETOROLAC 15 MG/ML VIAL. IV SCH ×2 (17:14→23:44)
--- NOTE | 2017-02-17 18:45 | HP ---
ADMIT DATE: 02/17/2017 CHIEF COMPLAINT: Abdominal pain. HISTORY OF PRESENT ILLNESS: The patient is a pleasant 56-year-old white female who presents with abdominal pain. She rates it at 10/10. She has associated nausea. It has been occurring off and on for a couple of days. Initial CAT scan in the ER did not confirm the etiology, but we suspected she has gallstones. She has now been admitted. We did an ultrasound. It is now confirming gallstones and she also has a thickened gallbladder. We have consulted Dr. Sanchez. The plan is to do a laparoscopic cholecystectomy today. PAST MEDICAL HISTORY: Depression, hypertension, hypothyroidism, breast cancer, right breast lumpectomy. ALLERGIES: None. FAMILY HISTORY: Diabetes. SOCIAL HISTORY: She does not drink, smoke or take drugs. She is . MEDICATIONS: Reviewed. REVIEW OF SYSTEMS: GENERAL: No history of weight change, weakness or fevers. SKIN: No bruising, hair changes or rashes. EYES: No blurred, double or loss of vision. NOSE AND THROAT: No history of nosebleeds, hoarseness or sore throat. HEART: No history of palpitations, chest pain or shortness of breath on exertion. LUNGS: Denies cough, hemoptysis, wheezing or shortness of breath. GASTROINTESTINAL: She complains of abdominal pain and nausea. GENITOURINARY: No history of frequency, urgency, hesitancy or nocturia. NEUROLOGIC: Denies history of numbness, tingling, tremor or weakness. PSYCHIATRIC: No history of panic, anxiety or depression. ENDOCRINE: No history of heat or cold intolerance, polyuria or polydipsia. EXTREMITIES: Denies muscle weakness, joint pain, pain on walking or stiffness. PHYSICAL EXAMINATION: VITAL SIGNS: Temperature afebrile, pulse 67, respirations 18, blood pressure 142/97. GENERAL: She is alert, cooperative. Her is present. He is good support for her. HEART: Normal S1, S2. LUNGS: Clear. ABDOMEN: Soft, distended, decreased bowel sounds, tender in the right upper quadrant. EXTREMITIES: No edema. SKIN: No rashes. PSYCHIATRIC: She is a little anxious. VASCULAR: Good capillary refill. ENDOCRINE: No thyromegaly. LYMPHATICS: No cervical nodes. LABORATORY DATA: White count 14, hemoglobin 14, platelets 221. Electrolytes are normal, other than a sodium of 134 and glucose of 150. Alk phos a little high at 121. ASSESSMENT AND PLAN: Symptomatic gallstones with hyponatremia and hyperglycemia. The patient is being admitted. We will give her IV fluids, p.r.n. antiemetics, p.r.n. narcotics. Consult General Surgery. She is scheduled for laparoscopic cholecystectomy. We will follow her labs closely. We will recheck her labs in the morning. SEGUN ELIAS DO DR: CARLOS/epifanio JOB#: [id number] / [id number]
[2017-02-18 03:21] VITALS: BP 106/59
[2017-02-18] MEDS: KETOROLAC 15 MG/ML VIAL. IV SCH ×2 (05:41→12:00)
[2017-02-18] MEDS: CEFEPIME HCL 1 GM in IV NORMAL SALINE 50ML 50 ML IV SCH (05:41)
[2017-02-18 06:19] LABS: BASO % 0 % (0-3); EOS % 0 % (0-3); HEMATOCRIT 39.3 % (36.0-47.0); HEMOGLOBIN 13.3 g/dL (12.0-15.5); LYMPH # 1.1 x10^3/uL (1.0-4.8); LYMPH % 7 % (24-48); MEAN CORPUSCULAR HEMOGLOBIN 28 pg (25-35); MEAN CORPUSCULAR HGB CONC 34 g/dL (31-37); MEAN CORPUSCULAR VOLUME 84 fL (79-100); MONO % 8 % (0-9); NEUT % 85 % (31-73); PLATELET COUNT 223 x10^3/uL (140-400); WHITE BLOOD COUNT 14.4 x10^3/uL (4.0-11.0)
[2017-02-18 06:37] LABS: CALCIUM 8.8 mg/dL (8.5-10.1); CREATININE 0.9 mg/dL (0.6-1.0); GFR 64.3; POTASSIUM 3.8 mmol/L (3.5-5.1)
[2017-02-18 07:00] VITALS: BP 103/59
[2017-02-18 11:00] VITALS: BP 105/47
--- NOTE | 2017-02-18 11:21 | PDOC ---
SURGICAL PROGRESS NOTE Subjective minimal pain , RUQ no n/v tolerated diet Vital Signs Vital Signs Date Time Temp Pulse Resp B/P (MAP) Pulse Ox O2 Delivery O2 Flow Rate FiO2 02/18/17 08:18 Room Air 02/18/17 07:00 97.6 72 20 103/59 (74) 98 97.6 02/17/17 17:00 2.5 I&O Intake and Output 02/18/17 07:00 Intake Total 1615 ml Output Total 480 ml Balance 1135 ml Intake Oral 615 ml IV Total 1000 ml Output Urine Total 300 ml Drainage Total 130 ml Estimated Blood Loss 50 ml # Voids 4 General: Alert, Oriented X3, Cooperative, No acute distress Abdomen: Soft, Other (lap dressings dry, JUJU serosang, expected incisional TTP) Labs Laboratory Tests Test 02/17/17 00:19 02/17/17 13:22 02/18/17 05:18 White Blood Count 14.5 x10^3/uL (4.0-11.0) 14.4 x10^3/uL (4.0-11.0) Red Blood Count 4.97 x10^6/uL (3.50-5.40) 4.70 x10^6/uL (3.50-5.40) Hemoglobin 14.1 g/dL (12.0-15.5) 13.3 g/dL (12.0-15.5) Hematocrit 41.9 % (36.0-47.0) 39.3 % (36.0-47.0) Mean Corpuscular Volume 84 fL (79-100) 84 fL (79-100) Mean Corpuscular Hemoglobin 28 pg (25-35) 28 pg (25-35) Mean Corpuscular Hemoglobin Concent 34 g/dL (31-37) 34 g/dL (31-37) Red Cell Distribution Width 14.5 % (11.5-14.5) 15.0 % (11.5-14.5) Platelet Count 221 x10^3/uL (140-400) 223 x10^3/uL (140-400) Neutrophils (%) (Auto) 85 % (31-73) 85 % (31-73) Lymphocytes (%) (Auto) 5 % (24-48) 7 % (24-48) Monocytes (%) (Auto) 9 % (0-9) 8 % (0-9) Eosinophils (%) (Auto) 1 % (0-3) 0 % (0-3) Basophils (%) (Auto) 1 % (0-3) 0 % (0-3) Neutrophils # (Auto) 12.3 x10^3uL (1.8-7.7) 12.2 x10^3uL (1.8-7.7) Lymphocytes # (Auto) 0.8 x10^3/uL (1.0-4.8) 1.1 x10^3/uL (1.0-4.8) Monocytes # (Auto) 1.2 x10^3/uL (0.0-1.1) 1.1 x10^3/uL (0.0-1.1) Eosinophils # (Auto) 0.1 x10^3/uL (0.0-0.7) 0.0 x10^3/uL (0.0-0.7) Basophils # (Auto) 0.1 x10^3/uL (0.0-0.2) 0.0 x10^3/uL (0.0-0.2) Segmented Neutrophils % 84 % (35-66) Band Neutrophils % 1 % (0-9) Lymphocytes % 6 % (24-48) Monocytes % 9 % (0-10) Platelet Estimate Adequate (ADEQUATE) Sodium Level 134 mmol/L (136-145) 139 mmol/L (136-145) Potassium Level 3.5 mmol/L (3.5-5.1) 3.8 mmol/L (3.5-5.1) Chloride Level 98 mmol/L (98-107) 103 mmol/L (98-107) Carbon Dioxide Level 28 mmol/L (21-32) 30 mmol/L (21-32) Anion Gap 8 (6-14) 6 (6-14) Blood Urea Nitrogen 13 mg/dL (7-20) 12 mg/dL (7-20) Creatinine 1.0 mg/dL (0.6-1.0) 0.9 mg/dL (0.6-1.0) Estimated GFR (Cockcroft-Gault) 56.9 64.3 BUN/Creatinine Ratio 13 (6-20) Glucose Level 150 mg/dL (70-99) 100 mg/dL (70-99) Calcium Level 8.8 mg/dL (8.5-10.1) 8.8 mg/dL (8.5-10.1) Total Bilirubin 0.8 mg/dL (0.2-1.0) Aspartate Amino Transf (AST/SGOT) 18 U/L (15-37) Alanine Aminotransferase (ALT/SGPT) 37 U/L (14-59) Alkaline Phosphatase 121 U/L (46-116) Creatine Kinase 52 U/L (26-192) Troponin I Quantitative < 0.017 ng/mL (0.000-0.055) Total Protein 6.7 g/dL (6.4-8.2) Albumin 3.6 g/dL (3.4-5.0) Albumin/Globulin Ratio 1.2 (1.0-1.7) Lipase 86 U/L (73-393) Glucose (Fingerstick) 151 mg/dL (70-99) Laboratory Tests Test 02/17/17 13:22 02/18/17 05:18 Glucose (Fingerstick) 151 mg/dL (70-99) White Blood Count 14.4 x10^3/uL (4.0-11.0) Red Blood Count 4.70 x10^6/uL (3.50-5.40) Hemoglobin 13.3 g/dL (12.0-15.5) Hematocrit 39.3 % (36.0-47.0) Mean Corpuscular Volume 84 fL (79-100) Mean Corpuscular Hemoglobin 28 pg (25-35) Mean Corpuscular Hemoglobin Concent 34 g/dL (31-37) Red Cell Distribution Width 15.0 % (11.5-14.5) Platelet Count 223 x10^3/uL (140-400) Neutrophils (%) (Auto) 85 % (31-73) Lymphocytes (%) (Auto) 7 % (24-48) Monocytes (%) (Auto) 8 % (0-9) Eosinophils (%) (Auto) 0 % (0-3) Basophils (%) (Auto) 0 % (0-3) Neutrophils # (Auto) 12.2 x10^3uL (1.8-7.7) Lymphocytes # (Auto) 1.1 x10^3/uL (1.0-4.8) Monocytes # (Auto) 1.1 x10^3/uL (0.0-1.1) Eosinophils # (Auto) 0.0 x10^3/uL (0.0-0.7) Basophils # (Auto) 0.0 x10^3/uL (0.0-0.2) Sodium Level 139 mmol/L (136-145) Potassium Level 3.8 mmol/L (3.5-5.1) Chloride Level 103 mmol/L (98-107) Carbon Dioxide Level 30 mmol/L (21-32) Anion Gap 6 (6-14) Blood Urea Nitrogen 12 mg/dL (7-20) Creatinine 0.9 mg/dL (0.6-1.0) Estimated GFR (Cockcroft-Gault) 64.3 Glucose Level 100 mg/dL (70-99) Calcium Level 8.8 mg/dL (8.5-10.1) Problem List Problems Medical Problems: (1) Abdominal pain Status: Acute (2) Leukocytosis Status: Acute (3) Nausea & vomiting Status: Acute Assessment/Plan s/p sheron PANIAGUA to [facility] home Home with Drain, FU for removal Problems: LEANDRA FLYNN APRN Feb 18, 2017 11:21
--- NOTE | 2017-02-18 13:41 | PDOC ---
PROGRESS NOTES Chief Complaint Chief Complaint CC:Abd pain HTN Hypothyroidism Depression Breast CA in remission History of Present Illness History of Present Illness Pt was admitted for RUQ pain that radiated diffusely throughout the abd to the level of the umbilicus. Underwent cholecystectomy, pt's pain is resolving. 3 trochar sites, dressings CDI. Roshan-Isabel drain in place. Pt has incentive spirometer. Vitals Vitals Vital Signs Date Time Temp Pulse Resp B/P (MAP) Pulse Ox O2 Delivery O2 Flow Rate FiO2 02/18/17 12:18 98 Room Air 2.5 02/18/17 11:00 98.4 77 20 105/47 (66) 98.4 Physical Exam General: Alert, Oriented X3, Cooperative, No acute distress Heart: Regular rate, No murmurs Lungs: Clear, Other Abdomen: Soft, Other (lap dressings dry, JUJU serosang, expected incisional TTP) Extremities: No edema Skin: No rashes, No breakdown, Other (3 trochar sites) Labs LABS Laboratory Tests Test 02/18/17 05:18 White Blood Count 14.4 x10^3/uL (4.0-11.0) Red Blood Count 4.70 x10^6/uL (3.50-5.40) Hemoglobin 13.3 g/dL (12.0-15.5) Hematocrit 39.3 % (36.0-47.0) Mean Corpuscular Volume 84 fL (79-100) Mean Corpuscular Hemoglobin 28 pg (25-35) Mean Corpuscular Hemoglobin Concent 34 g/dL (31-37) Red Cell Distribution Width 15.0 % (11.5-14.5) Platelet Count 223 x10^3/uL (140-400) Neutrophils (%) (Auto) 85 % (31-73) Lymphocytes (%) (Auto) 7 % (24-48) Monocytes (%) (Auto) 8 % (0-9) Eosinophils (%) (Auto) 0 % (0-3) Basophils (%) (Auto) 0 % (0-3) Neutrophils # (Auto) 12.2 x10^3uL (1.8-7.7) Lymphocytes # (Auto) 1.1 x10^3/uL (1.0-4.8) Monocytes # (Auto) 1.1 x10^3/uL (0.0-1.1) Eosinophils # (Auto) 0.0 x10^3/uL (0.0-0.7) Basophils # (Auto) 0.0 x10^3/uL (0.0-0.2) Sodium Level 139 mmol/L (136-145) Potassium Level 3.8 mmol/L (3.5-5.1) Chloride Level 103 mmol/L (98-107) Carbon Dioxide Level 30 mmol/L (21-32) Anion Gap 6 (6-14) Blood Urea Nitrogen 12 mg/dL (7-20) Creatinine 0.9 mg/dL (0.6-1.0) Estimated GFR (Cockcroft-Gault) 64.3 Glucose Level 100 mg/dL (70-99) Calcium Level 8.8 mg/dL (8.5-10.1) Review of Systems Review of Systems Abd pain resolving Pt complains of pain at surgical instrumentation sites Assessment and Plan Assessmemt and Plan Problems Medical Problems: (1) Abdominal pain Status: Acute (2) Leukocytosis Status: Acute (3) Nausea & vomiting Status: Acute CC:Abd pain: likely due to cholelithiasis, underwent cholecystectomy, continue cefepime, continue pain meds Leukocytosis: likely due to cholelithiasis, still elevated likely from recent surgery, continue to monitor N/V: Continue ondansetron HTN: Continue with home meds Hypothyroidism: Continue levothyroxine Depression: Continue home meds Breast CA in remission: Continue to follow Dispo: DC to home today 02/18/17 Problems: Comment Review of Relevant I have reviewed the following items kishan (where applicable) has been applied. Labs Laboratory Tests Test 02/17/17 00:19 02/17/17 13:22 02/18/17 05:18 White Blood Count 14.5 x10^3/uL (4.0-11.0) 14.4 x10^3/uL (4.0-11.0) Red Blood Count 4.97 x10^6/uL (3.50-5.40) 4.70 x10^6/uL (3.50-5.40) Hemoglobin 14.1 g/dL (12.0-15.5) 13.3 g/dL (12.0-15.5) Hematocrit 41.9 % (36.0-47.0) 39.3 % (36.0-47.0) Mean Corpuscular Volume 84 fL (79-100) 84 fL (79-100) Mean Corpuscular Hemoglobin 28 pg (25-35) 28 pg (25-35) Mean Corpuscular Hemoglobin Concent 34 g/dL (31-37) 34 g/dL (31-37) Red Cell Distribution Width 14.5 % (11.5-14.5) 15.0 % (11.5-14.5) Platelet Count 221 x10^3/uL (140-400) 223 x10^3/uL (140-400) Neutrophils (%) (Auto) 85 % (31-73) 85 % (31-73) Lymphocytes (%) (Auto) 5 % (24-48) 7 % (24-48) Monocytes (%) (Auto) 9 % (0-9) 8 % (0-9) Eosinophils (%) (Auto) 1 % (0-3) 0 % (0-3) Basophils (%) (Auto) 1 % (0-3) 0 % (0-3) Neutrophils # (Auto) 12.3 x10^3uL (1.8-7.7) 12.2 x10^3uL (1.8-7.7) Lymphocytes # (Auto) 0.8 x10^3/uL (1.0-4.8) 1.1 x10^3/uL (1.0-4.8) Monocytes # (Auto) 1.2 x10^3/uL (0.0-1.1) 1.1 x10^3/uL (0.0-1.1) Eosinophils # (Auto) 0.1 x10^3/uL (0.0-0.7) 0.0 x10^3/uL (0.0-0.7) Basophils # (Auto) 0.1 x10^3/uL (0.0-0.2) 0.0 x10^3/uL (0.0-0.2) Segmented Neutrophils % 84 % (35-66) Band Neutrophils % 1 % (0-9) Lymphocytes % 6 % (24-48) Monocytes % 9 % (0-10) Platelet Estimate Adequate (ADEQUATE) Sodium Level 134 mmol/L (136-145) 139 mmol/L (136-145) Potassium Level 3.5 mmol/L (3.5-5.1) 3.8 mmol/L (3.5-5.1) Chloride Level 98 mmol/L (98-107) 103 mmol/L (98-107) Carbon Dioxide Level 28 mmol/L (21-32) 30 mmol/L (21-32) Anion Gap 8 (6-14) 6 (6-14) Blood Urea Nitrogen 13 mg/dL (7-20) 12 mg/dL (7-20) Creatinine 1.0 mg/dL (0.6-1.0) 0.9 mg/dL (0.6-1.0) Estimated GFR (Cockcroft-Gault) 56.9 64.3 BUN/Creatinine Ratio 13 (6-20) Glucose Level 150 mg/dL (70-99) 100 mg/dL (70-99) Calcium Level 8.8 mg/dL (8.5-10.1) 8.8 mg/dL (8.5-10.1) Total Bilirubin 0.8 mg/dL (0.2-1.0) Aspartate Amino Transf (AST/SGOT) 18 U/L (15-37) Alanine Aminotransferase (ALT/SGPT) 37 U/L (14-59) Alkaline Phosphatase 121 U/L (46-116) Creatine Kinase 52 U/L (26-192) Troponin I Quantitative < 0.017 ng/mL (0.000-0.055) Total Protein 6.7 g/dL (6.4-8.2) Albumin 3.6 g/dL (3.4-5.0) Albumin/Globulin Ratio 1.2 (1.0-1.7) Lipase 86 U/L (73-393) Glucose (Fingerstick) 151 mg/dL (70-99) Laboratory Tests Test 02/18/17 05:18 White Blood Count 14.4 x10^3/uL (4.0-11.0) Red Blood Count 4.70 x10^6/uL (3.50-5.40) Hemoglobin 13.3 g/dL (12.0-15.5) Hematocrit 39.3 % (36.0-47.0) Mean Corpuscular Volume 84 fL (79-100) Mean Corpuscular Hemoglobin 28 pg (25-35) Mean Corpuscular Hemoglobin Concent 34 g/dL (31-37) Red Cell Distribution Width 15.0 % (11.5-14.5) Platelet Count 223 x10^3/uL (140-400) Neutrophils (%) (Auto) 85 % (31-73) Lymphocytes (%) (Auto) 7 % (24-48) Monocytes (%) (Auto) 8 % (0-9) Eosinophils (%) (Auto) 0 % (0-3) Basophils (%) (Auto) 0 % (0-3) Neutrophils # (Auto) 12.2 x10^3uL (1.8-7.7) Lymphocytes # (Auto) 1.1 x10^3/uL (1.0-4.8) Monocytes # (Auto) 1.1 x10^3/uL (0.0-1.1) Eosinophils # (Auto) 0.0 x10^3/uL (0.0-0.7) Basophils # (Auto) 0.0 x10^3/uL (0.0-0.2) Sodium Level 139 mmol/L (136-145) Potassium Level 3.8 mmol/L (3.5-5.1) Chloride Level 103 mmol/L (98-107) Carbon Dioxide Level 30 mmol/L (21-32) Anion Gap 6 (6-14) Blood Urea Nitrogen 12 mg/dL (7-20) Creatinine 0.9 mg/dL (0.6-1.0) Estimated GFR (Cockcroft-Gault) 64.3 Glucose Level 100 mg/dL (70-99) Calcium Level 8.8 mg/dL (8.5-10.1) Medications Current Medications Morphine Sulfate 2 mg PRN Q15MIN PRN IV/SQ PAIN GREATER THAN 3/10; Start at 00:15; Stop 02/17/17 at 00:22; Status DC Sodium Chloride 1,000 ml @ 1,000 mls/hr Q1H IV Last administered on 02/17/17 00:27; Start 02/17/17 at 00:15; Stop 02/17/17 at 01:14; Status DC Ondansetron HCl (Zofran) 4 mg 1X ONCE IV Last administered on 02/17/17 00:26 ; Start 02/17/17 at 00:15; Stop 02/17/17 at 00:16; Status DC Morphine Sulfate 2 mg PRN Q15MIN PRN IV/SQ PAIN GREATER THAN 3/10 Last administered on 02/17/17 14:21; Start 02/17/17 at 00:22; Stop 02/18/17 at 00:14 ; Status DC Ondansetron HCl (Zofran) 4 mg PRN Q8HRS PRN IV NAUSEA/VOMITING; Start 02/17/17 at 01:00; Stop 02/18/17 at 00:59; Status DC Morphine Sulfate 2 mg PRN Q2HR PRN IV PAIN Last administered on 02/17/17 10:52 ; Start 02/17/17 at 01:00; Stop 02/18/17 at 00:59; Status DC Fentanyl Citrate (Fentanyl 2ml Vial) 50 mcg PRN Q2HR PRN IV PAIN Last administered on 02/17/17 13:37; Start 02/17/17 at 01:00; Stop 02/18/17 at 00:59 ; Status DC Cefepime HCl 1 gm/ Sodium Chloride 50 ml @ 100 mls/hr Q8HRS IV Last administered on 02/18/17 05:41; Start 02/17/17 at 06:00 Cefepime HCl 1 gm/ Sodium Chloride 50 ml @ 100 mls/hr ONCE ONCE IV Last administered on 02/17/17 01:44; Start 02/17/17 at 01:30; Stop 02/17/17 at 02:00 ; Status DC Potassium Chloride/Dextrose/ Sod Cl 1,000 ml @ 125 mls/hr 1X ONCE IV Last administered on 02/17/17 03:25; Start 02/17/17 at 02:15; Stop 02/17/17 at 10:14 ; Status DC Cellulose 1 each STK-MED ONCE .ROUTE Last administered on 02/17/17 11:56; Start 02/17/17 at 10:31; Stop 02/17/17 at 10:32; Status DC Bupivacaine HCl/ Epinephrine Bitart (Sensorcain-Mpf Epi 0.5%-1:[id number]) 30 ml STK -MED ONCE .ROUTE ; Start 02/17/17 at 10:32; Stop 02/17/17 at 10:33; Status DC Iohexol (Omnipaque 300 Mg/ml) 50 ml STK-MED ONCE .ROUTE ; Start 02/17/17 at 10: 32; Stop 02/17/17 at 10:33; Status DC Propofol 20 ml @ As Directed STK-MED ONCE IV ; Start 02/17/17 at 10:49; Stop at 10:50; Status DC Lidocaine HCl (Lidocaine Pf 2% Vial) 5 ml STK-MED ONCE .ROUTE ; Start 02/17/17 at 10:49; Stop 02/17/17 at 10:50; Status DC Fentanyl Citrate (Fentanyl 2ml Vial) 100 mcg STK-MED ONCE .ROUTE ; Start at 10:49; Stop 02/17/17 at 10:50; Status DC Rocuronium [place] (Zemuron) 100 mg STK-MED ONCE .ROUTE ; Start 02/17/17 at 10: 49; Stop 02/17/17 at 10:50; Status DC Succinylcholine Chloride (Anectine) 200 mg STK-MED ONCE .ROUTE ; Start 02/17/17 at 10:50; Stop 02/17/17 at 10:51; Status DC Bupivacaine HCl/ Epinephrine Bitart (Sensorcaine-Epi 0.25%-1:922213 Mpf) 30 ml STK-MED ONCE .ROUTE Last administered on 02/17/17t 11:56; Start 02/17/17 at 10: 55; Stop 02/17/17 at 10:56; Status DC Dexamethasone Sodium Phosphate (Decadron) 20 mg STK-MED ONCE .ROUTE ; Start at 11:55; Stop 02/17/17 at 11:56; Status DC Ondansetron HCl (Zofran) 4 mg STK-MED ONCE .ROUTE ; Start 02/17/17 at 11:55; Stop 02/17/17 at 11:56; Status DC Desflurane (Suprane) 30 ml STK-MED ONCE IH ; Start 02/17/17 at 11:55; Stop 02/17 at 11:56; Status DC Neostigmine Methylsulfate (Bloxiverz) 10 mg STK-MED ONCE .ROUTE ; Start at 12:01; Stop 02/17/17 at 12:02; Status DC Glycopyrrolate (Robinul) 1 mg STK-MED ONCE .ROUTE ; Start 02/17/17 at 12:04; Stop 02/17/17 at 12:05; Status DC Ondansetron HCl (Zofran) 4 mg PRN Q6HRS PRN IV NAUSEA/VOMITING; Start 02/17/17 at 12:15; Stop 02/18/17 at 12:14; Status DC Fentanyl Citrate (Fentanyl 2ml Vial) 25 mcg PRN Q5MIN PRN IV MILD PAIN; Start 02/17/17 at 12:15; Stop 02/18/17 at 12:14; Status DC Fentanyl Citrate (Fentanyl 2ml Vial) 50 mcg PRN Q5MIN PRN IV MODERATE PAIN Last administered on 02/17/17 13:37; Start 02/17/17 at 12:15; Stop 02/18/17 at 12:14; Status DC Morphine Sulfate 1 mg PRN Q10MIN PRN IV SEVERE PAIN; Start 02/17/17 at 12:15; Stop 02/18/17 at 12:14; Status DC Ringer's Solution 1,000 ml @ 30 mls/hr Q24H IV Last administered on 02/17/17 14:05; Start 02/17/17 at 12:08; Stop 02/17/17 at 15:18; Status DC Lidocaine HCl 2 ml PRN 1X PRN ID PRIOR TO IV START; Start 02/17/17 at 12:15; Stop 02/18/17 at 12:14; Status DC Hydromorphone HCl (Dilaudid) 0.5 mg PRN Q10MIN PRN IV SEV PAIN, Second choice; Start 02/17/17 at 12:15; Stop 02/18/17 at 12:14; Status DC Prochlorperazine Edisylate (Compazine) 5 mg PACU PRN PRN IV NAUSEA, MRX1 Last administered on 02/17/17 13:34; Start 02/17/17 at 12:15; Stop 02/18/17 at 12:14 ; Status DC Labetalol HCl (Normodyne) 20 mg STK-MED ONCE .ROUTE ; Start 02/17/17 at 12:51; Stop 02/17/17 at 12:52; Status DC Oxycodone/ Acetaminophen (Percocet 5/325) 1 tab PRN Q4HRS PRN PO PAIN Last administered on 02/18/17 12:18; Start 02/17/17 at 13:15 Oxycodone/ Acetaminophen (Percocet 5/325) 2 tab PRN Q4HRS PRN PO PAIN; Start at 13:15 Ketorolac Tromethamine (Toradol) 15 mg Q6HRS IV Last administered on 02/18/17 05:41; Start 02/17/17 at 18:00; Stop 02/19/17 at 17:59 Fentanyl Citrate (Fentanyl 2ml Vial) 100 mcg STK-MED ONCE .ROUTE ; Start at 13:28; Stop 02/17/17 at 13:29; Status DC Ketorolac Tromethamine (Toradol) 15 mg STK-MED ONCE .ROUTE ; Start 02/17/17 at 13:43; Stop 02/17/17 at 13:44; Status DC Active Scripts Active Reported Promethazine Hcl 25 Mg Tablet 25 Mg PO Q6H Adderall Xr 15 Mg Capsule (Dextroamphetamine/Amphetamine) 15 Mg Cap.er.24h 15 Mg PO BID Zoloft (Sertraline Hcl) 50 Mg Tablet 1 Tab PO DAILY Effexor Xr (Venlafaxine Hcl) 75 Mg Cap.er.24h 150 Mg PO DAILY Synthroid (Levothyroxine Sodium) 100 Mcg Tablet 0 PO DAILYAC Trazodone Hcl 50 Mg Tablet 200 Mg PO HS Vitals/I & O Vital Sign - Last 24 Hours 02/17/17 02/17/17 02/17/17 02/17/17 13:30 13:37 13:37 13:44 Pulse 86 Resp 20 20 20 20 B/P (MAP) 135/75 Pulse Ox 95 99 99 O2 Delivery Simple Mask Simple Mask Simple Mask Room Air O2 Flow Rate 10 10.0 10.0 02/17/17 02/17/17 02/17/17 02/17/17 13:45 14:00 14:04 14:20 Pulse 84 82 Resp 20 20 20 B/P (MAP) 146/53 126/68 Pulse Ox 90 95 99 O2 Delivery Nasal Cannula Nasal Cannula Nasal Cannula O2 Flow Rate 2 2 2.0 2 02/17/17 02/17/17 02/17/17 02/17/17 14:20 14:21 14:30 14:45 Temp 99.8 99.8 Pulse 82 82 91 Resp 20 20 20 B/P (MAP) 126/68 137/68 (91) 127/68 (87) Pulse Ox 95 99 91 91 O2 Delivery Nasal Cannula Room Air Room Air O2 Flow Rate 2 2.0 02/17/17 02/17/17 02/17/17 02/17/17 15:00 15:15 15:30 16:00 Pulse 72 92 63 81 B/P (MAP) 114/68 (83) 120/59 (79) 108/60 (76) 115/59 (77) Pulse Ox 85 87 84 79 O2 Delivery Room Air Room Air Room Air Room Air 02/17/17 02/17/17 02/17/17 02/17/17 17:00 18:00 20:00 23:10 Temp 97.6 97.6 Pulse 67 94 78 Resp 18 B/P (MAP) 116/62 (80) 110/59 (76) 120/69 (86) Pulse Ox 95 94 97 O2 Delivery Nasal Cannula Room Air Room Air Room Air O2 Flow Rate 2.5 02/18/17 02/18/17 02/18/17 02/18/17 03:21 07:00 08:18 11:00 Temp 97.5 97.6 98.4 97.5 97.6 98.4 Pulse 68 72 77 Resp 18 20 20 B/P (MAP) 106/59 (75) 103/59 (74) 105/47 (66) Pulse Ox 95 98 98 O2 Delivery Room Air Room Air Room Air Room Air 02/18/17 12:18 Pulse Ox 98 O2 Delivery Room Air O2 Flow Rate 2.5 Intake and Output 02/17/17 02/17/17 02/18/17 15:00 23:00 07:00 Intake Total 1025 ml 250 ml 340 ml Output Total 100 ml 340 ml 40 ml Balance 925 ml -90 ml 300 ml SEGUN ELIAS III DO Feb 18, 2017 13:41
--- NOTE | 2017-02-21 15:03 | PATHOLOGY ---
PATHOLOGY REPORT * * * * * * * * FINAL DIAGNOSIS: Gallbladder, laparoscopic cholecystectomy: - Cholelithiasis. - Cholesterolosis. - Acute hemorrhagic and chronic cholecystitis. COMMENT: There is no evidence of malignancy. (JPM:mml; 02/21/2017) REPORT ELECTRONICALLY SIGNED BY: Yoseph Breen M.D. DATE/TIME: 02/21/2017 15:02 * * * * * * * * GROSS PATHOLOGY: Received in formalin labeled "Geri Vizcarra, gallbladder and contents," is an 8.7 x 4.7 x 2.0 cm, intact gallbladder with dark reddish brown, focally necrotic appearing serosal surfaces. Opening the gallbladder reveals dark reddish brown, necrotic appearing mucosa and an average wall thickness of 0.7 cm. Calculi are present and no masses are noted grossly. Learning Engineer sections from the body and fundus are submitted along with the proximal margin in cassette A1. (JPM; 02/20/17) INITIAL CPT CODE(S): A; 74086 Professional services performed by [employer] [place] [address] Technical services performed by [facility] at [address] [place] [address]. SPECIMEN(S) RECEIVED: A.Gallbladder and contents CLINICAL HISTORY: Cholecystitis with cholelithiasis PATIENT: GERI VIZCARRA /AGE: 5 1960 (Age: 56) PATIENT #: [id number] ALT CASE #: SPECIMEN COLLECTION DATE: 02/17/2017 SPECIMEN RECEIVED DATE: 02/20/2017 [facility] - [id number] [place] [address] - PHONE: [phone] * * * END OF REPORT * * *
== END 2017-02-18 13:15 | disposition home or self-care (01) | DRG 418 ==
LOC: ER 23:51 → 6 SOUTH 02-17 00:55 → OBSVTOIN 02-17 13:32
PROVIDERS: ADMIT Internal Medicine; ATTEND Internal Medicine
PROC: 0FT44ZZ Resection of Gallbladder, Percutaneous Endoscopic Approach (ICD-10-PCS; principal; 2017-02-17 11:45)
DX: K80.00 Calculus of gallbladder with acute cholecystitis without obstruction (principal); E87.1 Hypo-osmolality and hyponatremia; R65.10 Systemic inflammatory response syndrome (SIRS) of non-infectious origin without acute organ dysfunction; C50.919 Malignant neoplasm of unspecified site of unspecified female breast; I10 Essential (primary) hypertension; E03.9 Hypothyroidism, unspecified; F32.9 Major depressive disorder, single episode, unspecified; R73.9 Hyperglycemia, unspecified; Z83.3 Family history of diabetes mellitus
CPT/HCPCS: 36415; 76700; 80048; 80053; 82550; 82962; 83690; 84484; 85007; 85025; 93005; 96361; 96365; 96375; G0378; G0379; J0330; J0692; J0780; J1100; J1885; J2270; J2405; J2704; J2710; J3010; J3490; J7030; J7120; Q9967; 99285-25; J2001

== ENCOUNTER → 2017-07-25 | Outpatient (CLI) | payer BC | END | disposition home or self-care (01) | LOC: MAMMO 16:12 | DX: Z12.31 Encounter for screening mammogram for malignant neoplasm of breast (principal) | CPT/HCPCS: 77067 ==

== ENCOUNTER → 2018-03-13 | Outpatient (CLI) | payer BC ==
[~2018-03-13] MED LIST changes: +PROM25TA10 PO; +TRAZ-85 PO; -TRAZ50TA15 PO; +ZOLPIDEM 5 MG TABLET. PO ONE
--- NOTE | 2018-03-14 12:01 | SLEEP ---
DATE OF STUDY: 03/13/2018 ATTENDING PHYSICIAN: Dr. An Rivera. The patient is 57-year-old who weighs 249 pounds with a BMI of 43. The patient's Marsing score was 10. The patient was referred back for CPAP titration study. Result of diagnostic study was not available at the time of dictation. During the night study, the patient spent 426 minutes in bed and slept for 355 minutes with a sleep efficiency of 83%. Sleep latency was 23 minutes with a REM latency of 353 minutes. Overall, sleep architecture showed normal stage 1 sleep, slightly increased stage 2 sleep, increased slow wave and reduced REM sleep. EKG monitoring revealed average heart rate of 78 beats per minute, no sustained arrhythmias were observed. Normal sinus rhythm. No PLMS observed. The patient was started on CPAP at 5 cm water and titrated up to 15 cm water. At the final pressure, the patient slept for 34 minutes. The patient had REM sleep, but no supine sleep. The patient's AHI was reduced to 4 per hour. Oxygen saturation remained above 90%. The patient used a large size nasal mask. IMPRESSION: 1. CPAP at 15 cm water completely eliminated the patient's sleep apnea and should be used on a nightly basis. 2. Follow up in 4-6 weeks to assess compliance with CPAP and to document clinical improvement. 3. Weight loss is strongly advised. 4. Avoid SHEET METAL [employer]OR depressants. 5. Caution regarding driving until symptoms of sleep apnea resolve with the use of CPAP. 6. The patient had no clinically significant PLMS. DANNA KELLY MD DR: GUI/epifanio JOB#: [id number] / [id number] AN Bowling MD
== END | disposition home or self-care (01) ==
LOC: RT 18:44
PROVIDERS: ATTEND Family Medicine
DX: G47.33 Obstructive sleep apnea (adult) (pediatric) (principal); I10 Essential (primary) hypertension; E03.9 Hypothyroidism, unspecified; Z85.3 Personal history of malignant neoplasm of breast; Z82.49 Family history of ischemic heart disease and other diseases of the circulatory system; Z83.3 Family history of diabetes mellitus
CPT/HCPCS: 95811

== ENCOUNTER → 2018-08-27 | Outpatient (CLI) | payer OTHER ==
[~2018-08-27] MED LIST changes: +TRAZ-118 PO; -TRAZ-85 PO; -ZOLPIDEM 5 MG TABLET. PO ONE
--- NOTE | 2018-08-29 08:00 | RAD ---
DATE: 08/27/2018 12:00 PM EXAM: MAMMO TARAS SCREENING BILATERAL HISTORY: routine screening evaluation. History of prior right breast cancer COMPARISON: Prior mammographic imaging 07/25/2017, 05/03/2016, 02/01/2015, 01/16/2014 Bilateral CC and MLO views of the breasts were performed. Bilateral breast tomosynthesis was performed in CC and MLO projections. This study was interpreted with the benefit of Computerized Aided Detection (CAD ). Breast Density: The breast parenchyma is primarily fatty replaced. Breast parenchyma level density A. FINDINGS: Architectural distortion within the right breast at the site of prior lumpectomy in the upper outer right breast is more prominent on today's examination. Parenchymal pattern of the left breast is stable. Several nodular densities in left breast are also unchanged. Otherwise, no new suspicious masses, microcalcifications or architectural distortion is present to suggest malignancy in either breast. The visualized axillae are unremarkable. IMPRESSION: Right breast architectural distortion, findings for which additional imaging is advised. BI-RADS CATEGORY: 0 INCOMPLETE: NEEDS ADDITIONAL IMAGING EVALUATION AND/OR PRIOR MAMMOGRAMS FOR COMPARISON. RECOMMENDED FOLLOW-UP: ADD ADDITIONAL IMAGING additional imaging of the right breast is recommended in the region of the architectural distortion at the site of prior lumpectomy, which is more prominent on today's exam, for which spot compression CC and MLO views as well as ultrasound is recommended. PQRS compliance statement: Patient information was entered into a reminder system with a target due date -immediate follow-up for the diagnostic mammogram/ ultrasound Mammography is a sensitive method for finding small breast cancers, but it does not detect them all and is not a substitute for careful clinical examination. A negative mammogram does not negate a clinically suspicious finding and should not result in delay in biopsying a clinically suspicious abnormality. "Our facility is accredited by the [employer] Mammography Program." EDELMIRAD
== END | disposition home or self-care (01) ==
LOC: MAMMO 09:54
PROVIDERS: ATTEND Family Medicine
DX: Z12.31 Encounter for screening mammogram for malignant neoplasm of breast (principal); Z85.3 Personal history of malignant neoplasm of breast
CPT/HCPCS: 77063; 77067

== ENCOUNTER → 2018-08-31 | Outpatient (CLI) | payer OTHER ==
--- NOTE | 2018-08-31 12:52 | RAD ---
DATE: 08/31/2018 EXAM: DIGITAL DIAGNOSTIC RT, BREAST RIGHT HISTORY: Suspicious screening study COMPARISON: 08/27/2018, 07/25/2017, 05/03/2016, 02/11/2015 This study was interpreted with the benefit of Computerized Aided Detection (CAD). Breast Density: SCATTERED The breast parenchyma shows scattered fibroglandular densities. Breast parenchyma level B. FINDINGS: Additional spot compression and straight medial lateral views of the right breast were obtained. A focus of increased density with architectural distortion is again noted superolaterally at the 11:00 location in the right breast. There are benign type calcifications. The findings are compatible with post therapeutic scarring in this patient with a history of a breast cancer with lumpectomy and radiation therapy. The architectural distortion is more evident on the tomosynthesis images from 08/27/2018 compared to the old 2-D images, due to technical differences. Careful comparison of the current and old 2-D images shows no definite change. Right breast ultrasound, 08/31/2018: A targeted ultrasound exam of the upper outer quadrant of the right breast was performed. At the 11:00 location approximately 5 cm from the nipple there is an ill-defined hypoechoic process measuring 1.3 x 2.8 x 1.7 cm. No dense mass of this size is seen on the mammograms. The appearance on the sonograms is probably due to scarring with associated shadowing. A neoplastic etiology cannot be excluded sonographically, however, the mammographic stability favors scarring. IMPRESSION: Post therapeutic scarring at the 11:00 location as described above. The architectural distortion is better delineated on the current 3-D exam compared to prior 2-D studies due to technical factors. No definite true interval change is identified. Mammographic surveillance consisting of 3-D mammography in 6 months and then yearly intervals is suggested. BI-RADS CATEGORY: 3 PROBABLY BENIGN FINDING(S)-SHORT INTERVAL FOLLOW-UP SUGGESTED RECOMMENDED FOLLOW-UP: 6M 6 MONTH FOLLOW-UP PQRS compliance statement: Patient information was entered into a reminder system with a target due date for the next mammogram. Mammography is a sensitive method for finding small breast cancers, but it does not detect them all and is not a substitute for careful clinical examination. A negative mammogram does not negate a clinically suspicious finding and should not result in delay in biopsying a clinically suspicious abnormality. "Our facility is accredited by the [employer] Mammography Program."
== END | disposition home or self-care (01) ==
LOC: MAMMO 11:03
PROVIDERS: ATTEND Family Medicine
DX: R92.8 Other abnormal and inconclusive findings on diagnostic imaging of breast (principal)
CPT/HCPCS: 76641; 77065

== ENCOUNTER → 2019-03-05 | Outpatient (CLI) | payer OTHER ==
--- NOTE | 2019-03-06 16:44 | RAD ---
DATE: 03/05/2019 EXAM: MAMMO TARAS EDWING RT HISTORY: Abnormal mammogram COMPARISON: 02/11/2015, 05/03/2016, 07/25/2017, and 08/27/2018 screen mammographic exams This study was interpreted with the benefit of Computerized Aided Detection (CAD). Breast Density: SCATTERED The breast parenchyma shows scattered fibroglandular densities. Breast parenchyma level B. FINDINGS: Benign calcification noted. No mass or distortion in the interval. Asymmetry involving the right upper breast is unchanged. Distortion involving right upper breast is stable compared to previous exams. IMPRESSION: No suspicious change. BI-RADS CATEGORY: 3 PROBABLY BENIGN FINDING(S)-SHORT INTERVAL FOLLOW-UP SUGGESTED RECOMMENDED FOLLOW-UP: 6M 6 MONTH FOLLOW-UP PQRS compliance statement: Patient information was entered into a reminder system with a target due date at the time of annual screening for the next mammogram. Mammography is a sensitive method for finding small breast cancers, but it does not detect them all and is not a substitute for careful clinical examination. A negative mammogram does not negate a clinically suspicious finding and should not result in delay in biopsying a clinically suspicious abnormality. "Our facility is accredited by the [employer] Mammography Program."
== END | disposition home or self-care (01) ==
LOC: MAMMO 09:29
PROVIDERS: ATTEND Family Medicine
DX: R92.1 Mammographic calcification found on diagnostic imaging of breast (principal); N64.89 Other specified disorders of breast; Z85.3 Personal history of malignant neoplasm of breast
CPT/HCPCS: 77065; G0279; 77061

== ENCOUNTER 2021-06-09 19:38 | Observation (INO) | payer OTHER ==
[~2021-06-09] VITALS: Ht 162.6 cm; Wt 115.9 kg
[~2021-06-09 19:38] MED LIST changes: +LEVO-101 PO; -LEVO100T PO
[2021-06-09] MEDS ORDERED: IV NORMAL SALINE 1000ML BAG 1,000 ML IV ONE (22:00)
[2021-06-09] MEDS ORDERED: diphenhydrAMINE 50 MG/ML VIAL IVP ONE (22:00)
[2021-06-09] MEDS ORDERED: PROCHLORPERAZINE 10 MG/2 ML VIAL. IV ONE (22:00)
--- NOTE | 2021-06-09 22:06 | PHYS DOC ---
Past Medical History Past Medical History: Depression, Hypertension, Hypothyroid Additional Past Medical Histor: Breast CA- treated Additional Past Surgical Histo: Right breast lumpectomy Smoking Status: Never Smoker Alcohol Use: None Drug Use: None Adult General Chief Complaint Chief Complaint: ALTERED MENTAL STATUS HPI HPI The patient is a 60-year-old female with a history of ADHD who presents for evaluation of inability to remember events earlier today. She reports an associated gradual onset bilateral frontal headache radiating to the occiput. Headache and inability to remember events earlier today had onset at about 5 PM, about 4 hours prior to arrival, her who is at bedside. No other symptoms and in particular no fevers, nausea or vomiting, focal or lateralizing weakness, numbness or tingling, neck stiffness/pain/meningismus, vision changes, shortness of breath or chest pain, recent injury or trauma to her head. Patient reports no prior history of any similar symptoms in the past. She does note a history of headaches previously but not very often, and not very severe. Patient is alert and pleasantly and appropriately interactive and in no acute distress, oriented to self, location, year and situation and ambulatory with a narrow, steady gait. Blood glucose and vital signs are appropriate here. Review of Systems Review of Systems A 12 point review of systems was completed and was negative except where noted in HPI above. Current Medications Current Medications Current Medications Medications (Trade) Dose Ordered Sig/Jaclyn Start Time Stop Time Status Last Admin Dose Admin Diphenhydramine HCl (Benadryl) 25 mg 1X ONCE 06/09/21 22:00 06/09/21 22:01 DC 06/09/21 22:29 25 MG Info (CONTRAST GIVEN -- Rx MONITORING) 1 each PRN DAILY PRN 06/09/21 22:45 06/11/21 22:44 Iohexol (Omnipaque 300 Mg/ml) 75 ml 1X ONCE 06/09/21 23:00 06/09/21 23:01 Cancel Iohexol (Omnipaque 350 Mg/ml) 100 ml STK-MED ONCE 06/09/21 23:30 06/09/21 23:30 DC Prochlorperazine Edisylate (Compazine) 10 mg 1X ONCE 06/09/21 22:00 06/09/21 22:01 DC 06/09/21 22:28 10 MG Sodium Chloride 1,000 ml @ 1,000 mls/hr 1X ONCE 06/09/21 22:00 06/09/21 22:59 DC 06/09/21 22:27 1,000 MLS/HR Allergies Allergies Allergies Coded Allergies Type Severity Reaction Last Updated Verified No Known Drug Allergies 12/16/13 No Physical Exam Physical Exam Elderly female appearing nontoxic and in no acute distress. Head is normocephalic and atraumatic. Neck is supple and nontender. No neck stiffness/rigidity/meningismus seen and patient ranges her neck fully in all dimensions without discomfort or distress. Kernig's and Brudzinski's are negative oropharynx is moist. Lungs are clear to auscultation at all stations. There is a normal S1 and S2 without rubs or gallops and capillary refill is appropriate, less than 2 seconds globally. Abdomen is soft, nontender and nondistended. Skin is warm and dry without cyanosis, clubbing or edema. Psychiatrically, the patient demonstrates appropriate mood and affect and is alert. Neurologically, cranial nerves II through XII are intact and there are no lateralizing deficits seen. Speech is normal. Leg which is normal. Coordination is normal. There is no dysmetria with [id number] or dzad-mf-paxg bilaterally. Strength is 5 out of 5 in all joints of bilateral upper and lower extremities. Sensation is intact to light touch in bilateral upper and lower extremities. Patient ambulates with a narrow, steady, non- ataxic gait here in the emergency department and is alert and oriented x4. Current Patient Data Vital Signs Vital Signs Date Time Temp Pulse Resp B/P (MAP) Pulse Ox O2 Delivery O2 Flow Rate FiO2 06/09/21 21:29 98.0 25 146/68 (94) 10 Room Air 98.0 Lab Values Laboratory Tests Test 06/09/21 22:20 06/09/21 22:49 White Blood Count 4.7 x10^3/uL (4.0-11.0) Red Blood Count 3.40 x10^6/uL (3.50-5.40) L Hemoglobin 10.5 g/dL (12.0-15.5) L Hematocrit 30.9 % (36.0-47.0) L Mean Corpuscular Volume 91 fL (79-100) Mean Corpuscular Hemoglobin 31 pg (25-35) Mean Corpuscular Hemoglobin Concent 34 g/dL (31-37) Red Cell Distribution Width 19.4 % (11.5-14.5) H Platelet Count 185 x10^3/uL (140-400) Neutrophils (%) (Auto) 58 % (31-73) Lymphocytes (%) (Auto) 27 % (24-48) Monocytes (%) (Auto) 11 % (0-9) H Eosinophils (%) (Auto) 4 % (0-3) H Basophils (%) (Auto) 1 % (0-3) Neutrophils # (Auto) 2.7 x10^3/uL (1.8-7.7) Lymphocytes # (Auto) 1.3 x10^3/uL (1.0-4.8) Monocytes # (Auto) 0.5 x10^3/uL (0.0-1.1) Eosinophils # (Auto) 0.2 x10^3/uL (0.0-0.7) Basophils # (Auto) 0.0 x10^3/uL (0.0-0.2) Platelet Estimate Pending Activated Partial Thromboplast Time 31 SEC (24-38) Sodium Level 138 mmol/L (136-145) Potassium Level 3.5 mmol/L (3.5-5.1) Chloride Level 106 mmol/L (98-107) Carbon Dioxide Level 24 mmol/L (21-32) Anion Gap 8 (6-14) Blood Urea Nitrogen 20 mg/dL (7-20) Creatinine 1.0 mg/dL (0.6-1.0) Estimated GFR (Cockcroft-Gault) 56.2 BUN/Creatinine Ratio 20 (6-20) Glucose Level 84 mg/dL (70-99) Calcium Level 8.2 mg/dL (8.5-10.1) L Total Bilirubin 0.6 mg/dL (0.2-1.0) Aspartate Amino Transferase (AST) 16 U/L (15-37) Alanine Aminotransferase (ALT) 33 U/L (14-59) Alkaline Phosphatase 110 U/L (46-116) Total Protein 6.2 g/dL (6.4-8.2) L Albumin 3.1 g/dL (3.4-5.0) L Albumin/Globulin Ratio 1.0 (1.0-1.7) Laboratory Tests 06/09/21 22:20 Laboratory Tests 06/09/21 22:49 EKG EKG [] Sinus rhythm, rate 72, no acute ST elevation or depression, GA 124, QRS 86, QTc 437, EP interpretation. Nonischemic tracing, intervals appropriate. Radiology/Procedures Radiology/Procedures [] Course & Med Decision Making Course & Med Decision Making Well-appearing 60-year-old female with reassuring vital signs and clinical examination and nonfocal neurologic examination presenting for gradual onset bilateral frontal headache over the past few hours along with amnesia to events occurring earlier today. Alert and oriented, ambulatory without difficulty. No lateralizing symptoms or exam findings suggestive of acute stroke. Will place IV and give IV fluids as well as medication for headache as noted and will check labs, EKG and noncontrast head CT as well as CT angiography of the head and neck. We will then reevaluate. 2340: Labs, EKG and advanced imaging of the head and head and neck vasculature are without evidence of acute process. On serial reassessments patient is resting very comfortably in bed, moving all extremities equally and with a wholly nonfocal repeat formal neurologic examination. She endorses resolution of her presenting headache. She remains alert and oriented x4. She still cannot remember events from earlier in the day. Symptoms may reflect transient global amnesia. Will bring in for further care on an observation basis to include neurology consultation. Patient and family updated and understand and agree and all questions are answered. Graciously accepted for admission by Dr. Murray. Skye Disclaimer Skye Disclaimer This electronic medical record was generated, in whole or in part, using a voice recognition dictation system. Departure Departure Impression: Primary Impression: Headache Additional Impression: Transient global amnesia Disposition: ADMITTED INPATIENT Condition: STABLE Referrals: BENTLEY TERRY MD (PCP) Problem Qualifiers ROMINA CHAPA MD Jun 09, 2021 22:05
[2021-06-09 22:31] LABS: BASO % 1 % (0-3); EOS # 0.2 x10^3/uL (0.0-0.7); EOS % 4 % (0-3); HEMATOCRIT 30.9 % (36.0-47.0); HEMOGLOBIN 10.5 g/dL (12.0-15.5); LYMPH # 1.3 x10^3/uL (1.0-4.8); LYMPH % 27 % (24-48); MEAN CORPUSCULAR HEMOGLOBIN 31 pg (25-35); MEAN CORPUSCULAR HGB CONC 34 g/dL (31-37); MEAN CORPUSCULAR VOLUME 91 fL (79-100); MONO # 0.5 x10^3/uL (0.0-1.1); MONO % 11 % (0-9); NEUT # 2.7 x10^3/uL (1.8-7.7); NEUT % 58 % (31-73); PLATELET COUNT 185 x10^3/uL (140-400); RED CELL DISTRIBUTION WIDTH 19.4 % (11.5-14.5); WHITE BLOOD COUNT 4.7 x10^3/uL (4.0-11.0)
[2021-06-09] MEDS ORDERED: CONTRAST GIVEN. MC PRN (22:45)
[2021-06-09] MEDS ORDERED: IOHEXOL 300 MG/ML 100ML VIAL. IV ONE (23:00)
[2021-06-09 23:18] LABS: CALCIUM 8.2 mg/dL (8.5-10.1); GFR 56.2; POTASSIUM 3.5 mmol/L (3.5-5.1)
--- NOTE | 2021-06-09 23:19 | RAD ---
XR CHEST 1V INDICATION: Reason: AMS, headache / Spl. Instructions: / History: . COMPARISON STUDY: None. FINDINGS: Lungs: Low lung volume. No pulmonary mass or consolidation. The tracheobronchial tree and hilar struc tures are normal. Pleura: No pleural effusion or pneumothorax. Heart and Mediastinum: The cardiomediastinal silhouette is normal. The great vessels of the thorax ar e normal. IMPRESSION: No consolidation. Electronically signed by: Delvin Flynn MD (06/09/2021 11:17 PM) [facility]
[2021-06-09 23:24] LABS: ALBUMIN 3.1 g/dL (3.4-5.0); TOTAL BILIRUBIN 0.6 mg/dL (0.2-1.0); TOTAL PROTEIN 6.2 g/dL (6.4-8.2)
[2021-06-09] MEDS ORDERED: IOHEXOL 350 MG/ML 100 ML VIAL. ONE (23:30)
[2021-06-09] MEDS ORDERED: IOHEXOL 350 MG/ML 100 ML VIAL. IV ONE (23:45)
--- NOTE | 2021-06-10 00:09 | RAD ---
CT HEAD/BRAIN WO Date: 06/09/2021 11:26 PM Clinical Indication: AMS, headache Comparison: None. Technique: 5 mm axial tomographic images were obtained of the head without contrast. These were view ed on brain and bone windows. One or more of the following dose reduction techniques were utilized: A utomated exposure control (AEC), Adjustment of mA and/or kV according to patient size, Use of iterati ve reconstruction technique such as ASiR, CT scan done according to ALARA and image gently/image gant ly Findings: The brain parenchyma is normal in attenuation. No intra- or extra-axial mass or fluid collection. No acute hemorrhage. The ventricles are normal in size, shape, and morphology. The sosa-white matter mari ction is normal. The subarachnoid cisterns are patent. The visualized paranasal sinuses are normal. The visualized portions of the orbits and globes are no rmal. The mastoid air cells are clear. The hearth feeder topogram shows no lytic lesion or fracture. Impression: No acute intracranial process. Electronically signed by: Delvin Flynn MD (06/10/2021 12:06 AM) [facility]
--- NOTE | 2021-06-10 00:20 | RAD ---
EXAM: CTA HEAD AND NECK W/WO CONTRAST DATE: 06/09/2021 11:26 PM INDICATION: AMS, headache TECHNIQUE: CTA angiogram of the head and neck was obtained after IV bolus administration of 75 cc of Omnipaque 350. The images were sent to workstation and multiplanar reconstructions were obtained. M ultiplanar reconstruction images to include MIP and 3-D reconstruction images are submitted. One or more of the following dose reduction techniques were utilized: Automated exposure control (AEC ), Adjustment of mA and/or kV according to patient size, Use of iterative reconstruction technique weber ch as ASiR, CT scan done according to ALARA and image gently/image wisely COMPARISON: Noncontrast CT head done earlier the same day. FINDINGS: CTA Head: The visualized distal internal carotid arteries, anterior and middle cerebral arteries are patent and normal caliber. The distal vertebral arteries, basilar artery, and posterior cerebral arteries are p atent and normal caliber. No aneurysm or arteriovenous malformation is seen. CTA Neck: Right carotid: The right common carotid artery is patent and normal caliber. The carotid bifurcation is normal. No stenosis of the right internal carotid artery per NASCET criteria. The right external c arotid artery is patent. Left carotid: The left common carotid artery is patent and normal caliber. The carotid bifurcation is normal. No stenosis of the left internal carotid artery per NASCET criteria. The left external carot id artery is patent. Right vertebral: The right vertebral artery is patent and normal caliber. Left vertebral: The left vertebral artery is patent and normal caliber. The visualized portions of the aortic arch are normal. The origins of the brachiocephalic and subclav milagro arteries are normal. No cervical lymphadenopathy. The thyroid gland is normal. The parotid and submandibular glands are no rmal. The visualized aerodigestive tract is unremarkable. Mild to moderate multilevel degenerative disc height loss. Multilevel disc protrusions and marginal o steophytes results in multilevel spinal canal stenosis. Multilevel uncovertebral and facet arthrosis with multilevel neural foraminal narrowing. The visualized portions of the lungs are clear. IMPRESSION: 1. No aneurysm. No intracranial stenosis or occlusion. 2. No stenosis of the cervical carotid or vertebral arteries. PQRS Compliance Statement - Stenosis calculations for CT, MR and conventional angiography are based u yvonne measurement of the distal ICA diameter in accordance with the NASCET methodology. Electronically signed by: Delvin Flynn MD (06/10/2021 12:18 AM) [facility]
[2021-06-10] MEDS ORDERED: ONDANSETRON PF 4 MG/2 ML VIAL. IVP PRN (02:00)
[2021-06-10 04:00] VITALS: BP 124/62
[2021-06-10] MEDS ORDERED: IOHEXOL 300 MG/ML 100ML VIAL. ONE (04:13)
[2021-06-10] MEDS ORDERED: LEVO125T5 PO (04:53)
[2021-06-10] MEDS ORDERED: DEXT20TA24 PO (04:53)
[2021-06-10] MEDS ORDERED: AMLO-186 PO (04:53)
[2021-06-10] MEDS ORDERED: VENL150C6 PO (04:53)
[2021-06-10] MEDS ORDERED: ERGO500089 PO (04:53)
[2021-06-10] MEDS ORDERED: BUPR150T21 PO (04:53)
[2021-06-10] MEDS ORDERED: FERR325T20 PO (04:53)
[2021-06-10 04:59] LABS: % BANDS 5 % (0-9); % BASOS 1 % (0-3); % EOS 2 % (0-5); % LYMPHS 29 % (24-48); % MONOS 11 % (0-10); % SEGS 52 % (35-66); PLT ESTIMATE ADEQUATE (ADEQUATE); POLYCHROMASIA SLIGHT; TOXIC GRANULATION SLIGHT
--- NOTE | 2021-06-10 05:55 | EKG ---
[facility] [address] [place] [address] Test Date: 2021-06-09 Test Time: 21:45:01 Pat Name: GERI VIZCARRA Department: Room: [facility] Gender: F Second Rigger: : 1960 Requested By: ROMINA CHAPA Order Number: [id number] Reading MD: Aron Zheng Measurements Intervals [place] Rate: 72 P: 15 TN: 124 QRS: -5 QRSD: 86 T: 38 QT: 398 QTc: 437 Interpretive Statements SINUS RHYTHM LEFTWARD AXIS R-S TRANSITION ZONE IN V LEADS DISPLACED TO THE LEFT INCOMPLETE RIGHT BUNDLE BRANCH BLOCK Electronically Signed On 06-11-2021 15:44:53 [employer]PER[employer] BODY by Aron Zheng
[2021-06-10 07:00] VITALS: BP 131/82
--- NOTE | 2021-06-10 10:46 | NUR ---
SW following. Discussed with RN, pt from home with , room air, regular diet. Neurology following - brain MRI ordered. PT ordered. RN advised no SW needs at this time. SW will continue to follow.
[2021-06-10 11:00] VITALS: BP 145/78
[2021-06-10] MEDS ORDERED: ASPIRIN ENTERIC COATED 81 MG TABLET.DR. PO SCH (13:00)
--- NOTE | 2021-06-10 13:02 | PDOC2 ---
NEUROLOGY CONSULT Date of Service DOS: DATE: 06/10/21 TIME: 12:55 Reason for Consult Reason for Consult: Transient global amnesia Referring Physician Referring Physician: Dr. Murray PCP: Dr. Gonsalez Source Source: Caregiver (), Chart review, Patient History of Present Illness History of Present Illness The patient is a 60-year-old right-handed female who at 1700 yesterday had onset of confusion. Patient had been through to zoom meetings. She was telling her that she needed to get some dinner from the pantry and then forgot how to make the dinner. She did not know where she was. She forgot what had happened the previous day or even week before. She noticed resolution of symptoms at 2100 and in the emergency department had a nonfocal exam. She did have a throbbing headache. She says it 3 to 4 days a month she has "sinus headaches," with frontal pain, throbbing, with photo phonophobia, nausea, and scotomata. There is no history of stroke, seizure, or head injury. Past Medical History Cardiovascular: HTN Pulmonary: Other (Sleep apnea) Heme/Onc: Anemia NOS, Cancer (Breast) Psych: Anxiety, Depression, Other (Attention deficit hyperactivity) Past Surgical History Past Surgical History: Cholecystectomy, Other (Lumpectomy) Family History Family History: Cancer Social History Social History , rare alcohol, no tobacco, works from home Current Medications Current Medications Current Medications Sodium Chloride 1,000 ml @ 1,000 mls/hr 1X ONCE IV Last administered on 06/09/21at 22:27; Start 06/09/21 at 22:00; Stop 06/09/21 at 22:59; Status DC Prochlorperazine Edisylate (Compazine) 10 mg 1X ONCE IV Last administered on 06/09/21at 22:28; Start 06/09/21 at 22:00; Stop 06/09/21 at 22:01; Status DC Diphenhydramine HCl (Benadryl) 25 mg 1X ONCE IVP Last administered on 06/09/21at 22:29; Start 06/09/21 at 22:00; Stop 06/09/21 at 22:01; Status DC Iohexol (Omnipaque 300 Mg/ml) 75 ml 1X ONCE IV ; Start 06/09/21 at 23:00; Stop 06/09/21 at 23:01; Status Cancel Info (CONTRAST GIVEN -- Rx MONITORING) 1 each PRN DAILY PRN MC SEE COMMENTS; Start 06/09/21 at 22:45; Stop 06/11/21 at 22:44 Iohexol (Omnipaque 350 Mg/ml) 75 ml 1X ONCE IV Last administered on 06/09/21at 23:55; Start 06/09/21 at 23:45; Stop 06/09/21 at 23:46; Status DC Iohexol (Omnipaque 350 Mg/ml) 100 ml STK-MED ONCE .ROUTE ; Start 06/09/21 at 23:30; Stop 06/09/21 at 23:30; Status DC Ondansetron HCl (Zofran) 4 mg PRN Q8HRS PRN IVP NAUSEA/VOMITING 1ST CHOICE; Start 06/10/21 at 02:00; Stop 06/11/21 at 01:59 Iohexol (Omnipaque 300 Mg/ml) 100 ml STK-MED ONCE .ROUTE ; Start 06/10/21 at 04:13; Stop 06/10/21 at 04:13; Status DC Active Scripts Active Reported Amphetamine Salts 20 Mg Tablet (Dextroamphetamine/Amphetamine) 20 Mg Tablet 1 Tab PO BID Ferosul (Ferrous Sulfate) 325 Mg Tablet 1 Tab PO DAILY Levothyroxine Sodium 125 Mcg Tablet 1 Tab PO QAM Bupropion Xl (Bupropion Hcl) 150 Mg Tab.er.24h 3 Tab PO QAM Amlodipine Besylate 5 Mg Tablet 1 Tab PO DAILY Vitamin D2 (Ergocalciferol (Vitamin D2)) 1,250 Mcg Capsule 1 Cap PO WEEKLY Venlafaxine Hcl Er (Venlafaxine Hcl) 150 Mg Cap.er.24h 2 Cap PO DAILY Allergies Allergies: Coded Allergies: No Known Drug Allergies (Unverified , 12/16/13) ROS Review of System Negative for fever, chills, weight loss, shortness of breath, chest pain, indigestion, hematochezia, melena, and dysuria. Full 14-point review of systems is negative. Physical Exam Physical Examination General: Well-developed, well-nourished, white female, in no acute distress HEENT: Normocephalic andatraumatic. Temporal arteriespulsatile and nontender. Neck: Supple without bruit, no meningismus Musculoskeletal: Stability:see neurologic. Gait exam:see neurologic. Tone:see neurologic.Strength:see neurologic. Neurological: Mental Status:intact, orientation, memory, attention span/concentration, language, fund of knowledge normal. Cranial Nerves:Pupils equal and reactive to light, extraocular movements areintact, visual valladares are full to confrontation. Facial sensation is normal. There is no facial asymmetry. Vestibulo-ocular reflex is intact. Palate elevates and tongue protrudes in mi dline. All other cranial related problems are negative except as mentioned before.Reflexes:2+ and symmetric with flexor plantar responses. Motor:5/5 strength with normal tone and bulk. Coordination:Finger-nose finger and [id number] testing are normal. Rapid alternating movements and fine finger movements are intact. Gait:Normal, including tandem. Sensory:Normal pinprick, vibration, light touch, proprioception. Vitals VITALS Vital Signs Date Time Temp Pulse Resp B/P (MAP) Pulse Ox O2 Delivery O2 Flow Rate FiO2 06/10/21 11:00 97.8 75 20 145/78 (100) 97 Room Air 97.8 Labs Labs Laboratory Tests Test 06/09/21 22:20 06/09/21 22:49 White Blood Count 4.7 x10^3/uL (4.0-11.0) Red Blood Count 3.40 x10^6/uL (3.50-5.40) Hemoglobin 10.5 g/dL (12.0-15.5) Hematocrit 30.9 % (36.0-47.0) Mean Corpuscular Volume 91 fL (79-100) Mean Corpuscular Hemoglobin 31 pg (25-35) Mean Corpuscular Hemoglobin Concent 34 g/dL (31-37) Red Cell Distribution Width 19.4 % (11.5-14.5) Platelet Count 185 x10^3/uL (140-400) Neutrophils (%) (Auto) 58 % (31-73) Lymphocytes (%) (Auto) 27 % (24-48) Monocytes (%) (Auto) 11 % (0-9) Eosinophils (%) (Auto) 4 % (0-3) Basophils (%) (Auto) 1 % (0-3) Neutrophils # (Auto) 2.7 x10^3/uL (1.8-7.7) Lymphocytes # (Auto) 1.3 x10^3/uL (1.0-4.8) Monocytes # (Auto) 0.5 x10^3/uL (0.0-1.1) Eosinophils # (Auto) 0.2 x10^3/uL (0.0-0.7) Basophils # (Auto) 0.0 x10^3/uL (0.0-0.2) Segmented Neutrophils % 52 % (35-66) Band Neutrophils % 5 % (0-9) Lymphocytes % 29 % (24-48) Monocytes % 11 % (0-10) Eosinophils % 2 % (0-5) Basophils % 1 % (0-3) Toxic Granulation Slight Platelet Estimate Adequate (ADEQUATE) Polychromasia Slight Activated Partial Thromboplast Time 31 SEC (24-38) Sodium Level 138 mmol/L (136-145) Potassium Level 3.5 mmol/L (3.5-5.1) Chloride Level 106 mmol/L (98-107) Carbon Dioxide Level 24 mmol/L (21-32) Anion Gap 8 (6-14) Blood Urea Nitrogen 20 mg/dL (7-20) Creatinine 1.0 mg/dL (0.6-1.0) Estimated GFR (Cockcroft-Gault) 56.2 BUN/Creatinine Ratio 20 (6-20) Glucose Level 84 mg/dL (70-99) Calcium Level 8.2 mg/dL (8.5-10.1) Total Bilirubin 0.6 mg/dL (0.2-1.0) Aspartate Amino Transf (AST/SGOT) 16 U/L (15-37) Alanine Aminotransferase (ALT/SGPT) 33 U/L (14-59) Alkaline Phosphatase 110 U/L (46-116) Total Protein 6.2 g/dL (6.4-8.2) Albumin 3.1 g/dL (3.4-5.0) Albumin/Globulin Ratio 1.0 (1.0-1.7) Laboratory Tests Test 06/09/21 22:20 06/09/21 22:49 White Blood Count 4.7 x10^3/uL (4.0-11.0) Red Blood Count 3.40 x10^6/uL (3.50-5.40) Hemoglobin 10.5 g/dL (12.0-15.5) Hematocrit 30.9 % (36.0-47.0) Mean Corpuscular Volume 91 fL (79-100) Mean Corpuscular Hemoglobin 31 pg (25-35) Mean Corpuscular Hemoglobin Concent 34 g/dL (31-37) Red Cell Distribution Width 19.4 % (11.5-14.5) Platelet Count 185 x10^3/uL (140-400) Neutrophils (%) (Auto) 58 % (31-73) Lymphocytes (%) (Auto) 27 % (24-48) Monocytes (%) (Auto) 11 % (0-9) Eosinophils (%) (Auto) 4 % (0-3) Basophils (%) (Auto) 1 % (0-3) Neutrophils # (Auto) 2.7 x10^3/uL (1.8-7.7) Lymphocytes # (Auto) 1.3 x10^3/uL (1.0-4.8) Monocytes # (Auto) 0.5 x10^3/uL (0.0-1.1) Eosinophils # (Auto) 0.2 x10^3/uL (0.0-0.7) Basophils # (Auto) 0.0 x10^3/uL (0.0-0.2) Segmented Neutrophils % 52 % (35-66) Band Neutrophils % 5 % (0-9) Lymphocytes % 29 % (24-48) Monocytes % 11 % (0-10) Eosinophils % 2 % (0-5) Basophils % 1 % (0-3) Toxic Granulation Slight Platelet Estimate Adequate (ADEQUATE) Polychromasia Slight Activated Partial Thromboplast Time 31 SEC (24-38) Sodium Level 138 mmol/L (136-145) Potassium Level 3.5 mmol/L (3.5-5.1) Chloride Level 106 mmol/L (98-107) Carbon Dioxide Level 24 mmol/L (21-32) Anion Gap 8 (6-14) Blood Urea Nitrogen 20 mg/dL (7-20) Creatinine 1.0 mg/dL (0.6-1.0) Estimated GFR (Cockcroft-Gault) 56.2 BUN/Creatinine Ratio 20 (6-20) Glucose Level 84 mg/dL (70-99) Calcium Level 8.2 mg/dL (8.5-10.1) Total Bilirubin 0.6 mg/dL (0.2-1.0) Aspartate Amino Transf (AST/SGOT) 16 U/L (15-37) Alanine Aminotransferase (ALT/SGPT) 33 U/L (14-59) Alkaline Phosphatase 110 U/L (46-116) Total Protein 6.2 g/dL (6.4-8.2) Albumin 3.1 g/dL (3.4-5.0) Albumin/Globulin Ratio 1.0 (1.0-1.7) Images Images CT HEAD/BRAIN WO Date: 06/09/2021 11:26 PM Clinical Indication: AMS, headache Comparison: None. Technique: 5 mm axial tomographic images were obtained of the head without contrast. These were viewed on brain and bone windows. One or more of the following dose reduction techniques were utilized: Automated exposure control (AEC), Adjustment of mA and/or kV according to patient size, Use of iterative reconstruction technique such as ASiR, CT scan done according to ALARA and image gently/image wisely Findings: The brain parenchyma is normal in attenuation. No intra- or extra-axial mass or fluid collection. No acute hemorrhage. The ventricles are normal in size, shape, and morphology. The sosa-white matter junction is normal. The subarachnoid cisterns are patent. The visualized paranasal sinuses are normal. The visualized portions of the orbits and globes are normal. The mastoid air cells are clear. The jump roll operator topogram shows no lytic lesion or fracture. Impression: No acute intracranial process. DATE: 06/09/2021 11:26 PM INDICATION: AMS, headache TECHNIQUE: CTA angiogram of the head and neck was obtained after IV bolus administration of 75 cc of Omnipaque 350. The images were sent to workstation and multiplanar reconstructions were obtained. Multiplanar reconstruction images to include MIP and 3-D reconstruction images are submitted. One or more of the following dose reduction techniques were utilized: Automated exposure control (AEC), Adjustment of mA and/or kV according to patient size, Use of iterative reconstruction technique such as ASiR, CT scan done according to ALARA and image gently/image wisely COMPARISON: Noncontrast CT head done earlier the same day. FINDINGS: CTA Head: The visualized distal internal carotid arteries, anterior and middle cerebral arteries are patent and normal caliber. The distal vertebral arteries, basilar artery, and posterior cerebral arteries are patent and normal caliber. No aneurysm or arteriovenous malformation is seen. CTA Neck: Right carotid: The right common carotid artery is patent and normal caliber. The carotid bifurcation is normal. No stenosis of the right internal carotid artery per NASCET criteria. The right external carotid artery is patent. Left carotid: The left common carotid artery is patent and normal caliber. The carotid bifurcation is normal. No stenosis of the left internal carotid artery per NASCET criteria. The left external carotid artery is patent. Right vertebral: The right vertebral artery is patent and normal caliber. Left vertebral: The left vertebral artery is patent and normal caliber. The visualized portions of the aortic arch are normal. The origins of the brachiocephalic and subclavian arteries are normal. No cervical lymphadenopathy. The thyroid gland is normal. The parotid and submandibular glands are normal. The visualized aerodigestive tract is unremarkable. Mild to moderate multilevel degenerative disc height loss. Multilevel disc protrusions and marginal osteophytes results in multilevel spinal canal stenosis. Multilevel uncovertebral and facet arthrosis with multilevel neural foraminal narrowing. The visualized portions of the lungs are clear. IMPRESSION: 1. No aneurysm. No intracranial stenosis or occlusion. 2. No stenosis of the cervical carotid or vertebral arteries. Assessment/Plan Assessment/Plan Impression: I agree with the diagnosis of transient global amnesia. She has made a full recovery She describes what she calls sinus headaches, but these are migraines, and there is a correlation with transient global amnesia. No sign of stroke, seizure, encephalitis, other infection, or major metabolic derangement; she does have some hypocalcemia Recommendations: MRI of the brain, done, this appears normal to my view, radiology interpretation is pending Okay to discharge Daily aspirin 81 mg daily, discussed side effects Fully discussed with the patient and her and answered their questions Follow-up with me as needed Thank you for letting me help with the patient's care. IGNACIA RITTER MD Jun 10, 2021 13:02
[2021-06-10] MEDS ORDERED: ASPI-886 PO (14:03)
[2021-06-10] MEDS ORDERED: SIMV20TA PO (14:03)
--- NOTE | 2021-06-10 14:35 | RAD ---
MRI of the brain without contrast 06/10/2021 Clinical History: Transient amnesia. Technique: Unenhanced T1-weighted sagittal and axial, T2-weighted axial and coronal and FLAIR, gradie nt echo and diffusion-weighted axial images of the brain were obtained. Findings: Comparison is made to the patient's CT scan of the head dated 06/09/2021. There is generalized parenchymal atrophy. Patchy and several small scattered areas of increased signa l intensity are seen within the periventricular and subcortical white matter of both cerebral hemisph eres on the FLAIR and T2-weighted images consistent with areas of very mild small vessel ischemic dis ease. More extensive patchy increased signal intensity is seen involving the rosario on the FLAIR and T2 -weighted images which likely reflects ischemic demyelination. No acute parenchymal abnormality is seen. No extra-axial fluid collection is noted. There is no MRI e vidence of acute ischemia/infarction. Mild mucosal thickening in seen scattered throughout the paranasal sinuses. Normal flow voids are see n within the major vascular structures surrounding the brain parenchyma. IMPRESSION: No acute parenchymal abnormality is seen. Electronically signed by: Sim Schilling MD (06/10/2021 2:33 PM) [id number]
--- NOTE | 2021-06-10 14:51 | SSS ---
DATE OF SERVICE: 06/10/2021 ADMIT DATE: 06/10/2021 CHIEF COMPLAINT: Mental status change. HISTORY OF PRESENT ILLNESS: The patient is a pleasant, relatively healthy 60-year-old female who presented to the ER last night with mental status change. She was admitted overnight for observation. This morning, she is doing better. We sent her for an MRI. Dr. Pereyra has seen her. He has cleared for surgery. PAST MEDICAL HISTORY: Depression, hypertension, hypothyroidism, breast cancer, right breast lumpectomy. ALLERGIES: None. FAMILY HISTORY: Diabetes. SOCIAL HISTORY: She does not drink, smoke or take drugs. 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 MEDICATIONS: Reviewed, please refer to the MRAD. REVIEW OF SYSTEMS: GENERAL: No history of weight change, weakness or fevers. SKIN: No bruising, hair changes or rashes. EYES: No blurred, double or loss of vision. NOSE AND THROAT: No history of nosebleeds, hoarseness or sore throat. HEART: No history of palpitations, chest pain or shortness of breath on exertion. LUNGS: Denies cough, hemoptysis, wheezing or shortness of breath. GASTROINTESTINAL: Denies changes in appetite, nausea, vomiting, diarrhea or constipation. GENITOURINARY: No history of frequency, urgency, hesitancy or nocturia. NEUROLOGIC: Denies history of numbness, tingling, tremor or weakness. PSYCHIATRIC: No history of panic, anxiety or depression. ENDOCRINE: No history of heat or cold intolerance, polyuria or polydipsia. EXTREMITIES: Denies muscle weakness, joint pain, pain on walking or stiffness. PHYSICAL EXAMINATION: VITALS: Within normal limits and are stable. GENERAL: No apparent distress. Alert and oriented. HEENT: Normal cephalic atraumatic, external auditory canals are patent. Eyes: Extraocular muscles are intact, pupils are equally round and reactive to light and accommodation. MUSCULOSKELETAL: Well developed, well nourished, good range of motion. ENDOCRINE: No thyromegaly was palpated. LYMPHATICS: No cervical chain or axillary nodes were noted. HEMATOPOIETIC: No bruising. NECK: Supple, no JVD, no thyromegaly was noted. LUNGS: Clear to auscultation in all lung valladares without rhonchi or wheezing. HEART: RRR, S1, S2 present. Peripheral pulses intact, no obvious murmurs were noted. ABDOMEN: Soft, nontender. Positive bowel sounds, no organomegaly, normal bowel sounds. EXTREMITIES: Without any cyanosis, clubbing, or edema. Pedal pulses intact, Homans sign is negative. NEUROLOGIC: Normal speech, normal tone. A and O x 3, moves all extremities, no obvious focal deficits. PSYCHIATRIC: Normal affect, normal mood. Stable. SKIN: No ulcerations or rashes, good skin turgor, no jaundice. VASCULAR: Good capillary refill, neurovascular bundle appears to be intact. ASSESSMENT AND PLAN: Resolving transient ischemic attack. We are going to discharge. DISPOSITION: Home. ACTIVITY: As tolerated. DIET: Low sodium. DISCHARGE MEDICATIONS: Aspirin 81 a day and Zocor 40 a day. We will resume her home medicines. TOTAL TIME: 31 minutes. CARLOS/WILY DR: CARLOS/epifanio TID: [id number]
--- NOTE | 2021-06-10 15:05 | NUR ---
Pt left unit at 1505 by ambulation via private vehicle. Pt's IV's removed without complication, VSS. Discharge paperwork discussed with pt and , additional questions addressed.
== END 2021-06-10 15:07 | disposition home or self-care (01) ==
LOC: ER 19:38 → 5 SOUTH 06-10 01:50 → INTOOBSV 06-10 01:50
PROVIDERS: ADMIT Student in an Organized Health Care Education/Training Program; ATTEND Student in an Organized Health Care Education/Training Program
DX: R51.9 Headache, unspecified (principal); G45.4 Transient global amnesia; F90.9 Attention-deficit hyperactivity disorder, unspecified type; I10 Essential (primary) hypertension; G45.9 Transient cerebral ischemic attack, unspecified; E03.9 Hypothyroidism, unspecified; G47.30 Sleep apnea, unspecified; D64.9 Anemia, unspecified; F32.A Depression, unspecified; Z85.3 Personal history of malignant neoplasm of breast; Z90.49 Acquired absence of other specified parts of digestive tract; Z79.899 Other long term (current) drug therapy; Z98.890 Other specified postprocedural states; Z79.82 Long term (current) use of aspirin
CPT/HCPCS: 36415; 70450; 70496; 70498; 70551; 71045; 80053; 85007; 85025; 85730; 93005; 96361; 96374; 96375; G0378; J0780; J1200; J7030; Q9967; G0379